=== PATIENT | male | born 1975 | race African-American/Black ===

== ENCOUNTER 2021-07-09 14:44 | Emergency (ER) | payer MEDICAID, SELFPAY ==
--- NOTE | ~2021-07-09 | CT_ITS ---
EXAMINATION: CT CERVICAL SPINE WITHOUT CONTRAST CLINICAL INFORMATION: Neck pain with right arm pain. COMPARISON: None TECHNIQUE: Contiguous axial CT images of the cervical spine were obtained without contrast. Sagittal and coronal reformats were provided and reviewed. This CT examination was performed using dose optimization techniques as appropriate, variously including the following: *Automated exposure control. *Adjustment of mA and/or kV according to patient size (this includes techniques or standardized protocols for targeted exams where dose is matched to indication/reason for exam; i.e. extremities or head). *Use of iterative reconstruction technique. DLP: 603 mGy-cm FINDINGS: Straightening of the normal cervical lordosis, which may be positional or related to muscle spasm. No acute fracture or subluxation. No loss of vertebral body or intervertebral disc height. No lytic or blastic osseous lesion. Anterior endplate osteophytes at C5-C6. Unremarkable facet joints. The visualized paraspinal soft tissues are unremarkable. Normal thyroid. The visualized lung apices are clear. No significant central canal or neural foraminal stenosis. CT/CT cervical spine wo con IMPRESSION: 1. Straightening of the normal cervical lordosis, which may be positional or related to muscular spasm. 2. Mild degenerative disc disease at C5-C6.
[2021-07-09 14:52] VITALS: BP 155/93; PULSE 108; RESP 18; TEMP 36.6; O2SAT 98; BMI 25.7
--- NOTE | 2021-07-09 16:31 | ED.NECK ---
HPI - Neck Pain/Injury General Chief Complaint: Neck Pain/Injury Stated Complaint: neck pain Time Seen by Provider: 07/09/21 16:04 Source: patient Mode of arrival: ambulatory Limitations: no limitations History of Present Illness HPI Narrative: Patient presents to the ED for neck pain and right arm numbness for two weeks. patient states neck pain on movement. patient denies any recent trauma to head/neck/right upper extremity. patient states pmh of severe arthrits/disc herniation of lower back and has had surgery and spinal steriod injection in the past. patient was informed he needs rods in his spine.. patient denies any headache, nausea, emesis, photophobia, fever, chills, or dizziness. patient denies any history of IV drug use, HIV, or hep C. MD complaint: neck pain Related Data Previous Rx's Medication Instructions Recorded cyclobenzaprine 10 mg tablet 10 mg PO TID PRN #21 tab 07/09/21 ketorolac 10 mg tablet 10 mg PO Q6H PRN 5 Days #20 tab 07/09/21 prednisone 20 mg tablet 60 mg PO DAILY 5 Days #15 tab 07/09/21 Allergies Allergy/AdvReac Type Severity Reaction Status Date / Time No Known Allergies Allergy Verified 07/09/21 16:18 Review of Systems Review of Systems: Yes all other systems are reviewed and are negative Constitutional: Constitutional: Reports as per HPI and Reports no additional constitutional complaints Eyes: Eyes: Reports as per HPI and Reports no additional eye complaints ENT: Reports system reviewed and no additional complaints, except as documented, Reports as per HPI and Reports neck pain Cardiovascular: Cardiovascular: Reports as per HPI and Reports no additional cardiovascular complaints Respiratory: Respiratory: Reports as per HPI and Reports no additional respiratory complaints Gastrointestinal: Gastrointestinal: Reports as per HPI and Reports no additional gastrointestinal complaints Musculoskeletal: Musculoskeletal: Reports no additional musculoskeletal complaints, Reports as per HPI and Reports neck pain Comments: Right upper extremity posiive for tingling. Neurologic: Reports system reviewed and no additional complaints, except as documented and Reports as per HPI Psychiatric: Psychiatric: Reports no additional psychiatric complaints and Reports as per HPI [facility] Past Medical History Medical History (Updated 07/09/21 @ 18:36 by ANA PAULA Angela) HTN (hypertension) Lumbar herniated disc Social History Social History Advance Directives: No Advance Directives Information Provided: Yes Physical Exam Vital Signs: Vital Signs: Last Vital Signs Temp 97.8 F 07/09/21 14:52 Pulse 108 H 07/09/21 14:52 Resp 18 07/09/21 14:52 BP 155/93 H 07/09/21 14:52 Pulse Ox 98 07/09/21 14:52 Body Mass Index 25.7 Const: General: cooperative, healthy appearing, comfortable, no acute distress, well developed, alert, awake and Physically active Orientation/consciousness: oriented to time and patient oriented x3 HENMT: Head: Yes normal to inspection, Yes No palpable skull fracture present, Yes normocephalic, Yes atraumatic, No abrasion, No Vo's sign, No contusion, No cranial bruits, No hematoma, No laceration, No occipital foramen tenderness, No palpable skull fracture, No raccoon eyes, No scalp lesion, No scalp tenderness, No Temporal artery tenderness present and No periorbital ecchymosis Eyes: Other: negative photophobia Neck: Neck: Yes normal visual inspection, Yes full ROM, Yes no lymphadenopathy, Yes no meningeal signs, Yes trachea midline, Yes supple, No anterior neck swelling and Yes tender (posterior tenderness and pain on range of motion) Chest: Chest palpation & inspection: normal inspection of the chest and normal palpation of entire chest wall Resp: Effort & Inspection: normal respiratory effort and able to speak in complete sentences Auscultation: clear to auscultation bilaterally Cardio: Jugular venous distension: no JVD Heart sounds: S1 normal heart sound present and S2 normal heart sound present GI: Inspection: Yes normal to inspection and No abdominal wall ecchymosis Palpation (GI): Soft to palpation, not firm, nontender, no guarding and not rigid : General: No CVA tenderness and Yes no CVA tenderness Back/Spine/Pelvis: Back: no CVA tenderness, No CVA tenderness and No back tenderness Skin: General skin exam: no rashes or lesions noted and elasticity normal Neuro: Other: Negative facial droop. NEgative pronator drift. negative for slurred speech. All extremities equal strenght and 5+ General: oriented to time, patient oriented x3, gait normal, no meningeal signs and CN's II-XI intact bilaterally Cranial nerves: Yes CN's II-XII intact bilaterally Extrem: Other: Right upper extremity: negative for any swelling, pitting edema, chest pain, tenderness, deformity, redness, coldness, weakness, or hotness. MOtor, neuro, and vascular exam is itnact. Left upper extremity normal and motor/neuro/vascular exam is intact. General: Yes normal to inspection and Yes full ROM Psych: Appearance: grossly normal, well kempt and not disheveled Course Course Course Narrative: patient sent for cervical spine CT. pain meds ordered Reevaluation(s) Reevaluation #1: CT scan shows arthritis at C5 and C6. CT scan negative for any fractures. Not suspecting any epidural abscess. Will discharge with pain medication, muscle relaxer, and steroids. Patient referred to follow-up with PCP. Time: 18:35 MDM - Neck Pain/Injury MDM Narrative Medical decision making narrative: Cervical radiculopathy Discharge Plan Discharge Clinical Impression: Cervical radiculopathy Patient Disposition: Home, Self-Care Instructions: Cervical Radiculopathy (ED) Additional Instructions: Return to ED immediately for fever, headache, chills, nausea, vomiting, photophobia, worsening neck pain, paralysis of upper extremities, coolness, swelling upper extremity, severe numbness, chest pain, shortness of breath, or any other concerning symptoms. Contact your PCP. You can also contact at [address] [place] [address],?[id number] ?[phone] Prescriptions: New ketorolac 10 mg tablet 10 mg PO Q6H PRN (Reason: pain) 5 Days Qty: 20 RF: 0 prednisone 20 mg tablet 60 mg PO DAILY 5 Days Qty: 15 RF: 0 cyclobenzaprine 10 mg tablet 10 mg PO TID PRN (Reason: muscle spasm) Qty: 21 RF: 0 Stand Alone Forms: Work/School Release Print Language: Kittitian
[2021-07-09] MEDS: predniSONE 20 MG TABLET 60 MG PO (16:38)
[2021-07-09] MEDS: Ketorolac Tromethamine 15 MG/ML VIAL 30 MG IM (16:38)
[2021-07-09] MEDS: Cyclobenzaprine HCl 10 MG TABLET PO (16:38)
== END 2021-07-09 19:04 | disposition home or self-care (01) ==
PROVIDERS: Emergency Provider Emergency Medicine
DX: M54.12 Radiculopathy, cervical region (principal); M54.2 Cervicalgia
CPT/HCPCS: 72125; 96372; 99284; J1885

== ENCOUNTER 2021-07-17 18:02 | Inpatient (IN) | payer OTHER, SELFPAY ==
[2021-07-17 18:12] VITALS: BP 162/110; PULSE 96
[2021-07-17 18:23] VITALS: BP 148/93; PULSE 87; RESP 18; TEMP 36.8; O2SAT 98
[2021-07-17 18:39] VITALS: BP 158/70; O2SAT 96; BMI 23.0
--- NOTE | 2021-07-17 18:51 | ECG_ITS ---
Test Reason : medical clear Blood Pressure : / mmHG Vent. Rate : 066 BPM Atrial Rate : 066 BPM P-R Int : 162 ms QRS Dur : 090 ms QT Int : 386 ms P-R-T Axes : 031 080 004 degrees QTc Int : 404 ms Normal sinus rhythm Normal ECG No previous ECGs available Referred By: Jenelle Leung Electronically Signed By:TISHA BROWN MD
--- NOTE | 2021-07-17 18:52 | ED.PSYCH ---
HPI - Psych General Chief Complaint: Psychiatric Symptoms Stated Complaint: si Time Seen by Provider: 07/17/21 18:35 Source: patient Mode of arrival: ambulatory Limitations: no limitations History of Present Illness HPI Narrative: 46-year-old male with a past medical history of hypertension and lumbar herniated this who recently moved from [place] here over the past year after he lost his mother from [facility] now residing with his aunt presenting to the ED with complaints of increased anxiety/depression with auditory hallucinations telling him to kill himself with SI attempt on Thursday when he took a handful of pills which included for muscle relaxants and 3 gabapentin and a few other pills that he cannot recall at this time. He reports that he just fell asleep shortly after that and was out for a few days but it did not kill him therefore he came here for further evaluation and treatment. He reports that he has significant life stressors which include the above. He denies any drugs or alcohol usage. He denies any other symptoms complaints or concerns. He denies any visual hallucinations or homicidal ideations. Denies ever being hospitalized in a psychiatric unit. Reports that he has never attempted an SI attempt in the past this would be the 1st time. Patient is inpatient Section 12 bed search she was seen by [facility] when he was outpatient. complaint: suicidal ideation, feels depressed and anxiety Onset (ago): day(s) Duration: constant History of same: Yes Relieving factors: none Exacerbating factors: other (Multiple factors see above) Context: significant life stressor (Recently lost his mother to [facility]) Associated psychiatric symptoms: depression, suicidal ideation and racing thoughts Associated symptoms: denies other symptoms Treatments prior to arrival: none If self harm: admits thoughts of self harm, has plan, has acted on plan and intentional overdose Details of plan: Took a handful of his prescribed home medications on Thursday Related Data Previous Rx's Medication Instructions Recorded cyclobenzaprine 10 mg tablet 10 mg PO TID PRN #21 tab 07/09/21 ketorolac 10 mg tablet 10 mg PO Q6H PRN 5 Days #20 tab 07/09/21 prednisone 20 mg tablet 60 mg PO DAILY 5 Days #15 tab 07/09/21 Allergies Allergy/AdvReac Type Severity Reaction Status Date / Time No Known Allergies Allergy Verified 07/09/21 16:18 Review of Systems Review of Systems: Constitutional : No Fever, No Chills ENT/Mouth : No Ear Pain, No Nasal Congestion, No sore throat Eyes: No Eye Pain, No Swelling, No Redness Cardiovascular : No Chest Pain, No SOB Respiratory : No Cough, No Sputum, No Dyspnea Gastrointestinal : No ingestions, No Nausea, No Vomiting, No Diarrhea, No Hematochezia, No Melena Genitourinary : No Dysuria, No Urinary Frequency, No Hematuria Musculoskeletal : No Myalgias Skin : No Skin Lesions, No rash Neuro : No Weakness, No Numbness, No Paresthesias, No Dizziness, No Headache Psych : + Anxiety, + Depression, + SI, + thoughts of self injury, No HI, No AVH, Heme/Lymph: No Lymphadenopathy Endocrine : No Polyuria, No Polydipsia Yes all other systems are reviewed and are negative [facility] Past Medical History Attestation statement: The following information was validated with the patient. Medical History HTN (hypertension) Lumbar herniated disc Social History Social History Advance Directives: No Advance Directives Information Provided: No Physical Exam Vital Signs: Vital Signs: Last Vital Signs Temp 98.3 F 07/17/21 18:23 Pulse 87 07/17/21 18:23 Resp 18 07/17/21 18:23 BP 158/70 H 07/17/21 18:39 Pulse Ox 96 07/17/21 18:39 Body Mass Index 23.0 vital signs have been reviewed as normal and appeared to be correct. Blood pressure hypertensive 148/93 Heart rate normal. Respiration rate normal. Temperature normal. Oxygen saturation normal. Appearance: Alert. Oriented X3. No acute distress. Head: Normal external exam. Normocephalic. Atraumatic. Eyes: PERRLA. EOMI. Conjunctiva and sclera normal. Eyelids normal. ENT: Pharynx normal. Uvula midline. Moist mucous membranes. Neck: Normal inspection. Neck supple. FROM. No adenopathy. Thyroid Normal. No meningeal signs. No neck mass noted. CVS: Normal heart rate and rhythm. Heart sound normal. No murmurs noted. Pulses normal throughout. Respiratory: No respiratory distress. Painless inspiration. Breath sounds normal. No wheezes/rales/rhonchi noted. Chest nontender. No accessory muscle usage noted or decreased air movement noted. Abdomen: Soft and nontender. Bowel sounds normal in all 4 quadrants. No distention noted. No organomegaly noted. No visible injury noted. Back: Full range of motion noted. Skin: Skin warm and dry. Normal skin color. Normal skin turgor. No rashes/lesions/lacerations noted. Extremities: Extremities exhibit normal range of motion. Extremities nontender. Neuro: Oriented X 3. No motor deficit. No sensory deficit. Reflexes normal. Psych: Appearance grossly normal, well-kept, mental status normal, speech and movement normal, speech clear, patient appears very sad and anxious along with depressed. Is cooperative. Normal thought process. Normal thought content. Normal good insight. Judgment good. Course Course Course Narrative: 18:50pm - 46-year-old male with a past medical history of hypertension and lumbar herniated this who recently moved from [place] here over the past year after he lost his mother from [facility] now residing with his aunt presenting to the ED with complaints of increased anxiety/depression with auditory hallucinations telling him to kill himself with SI attempt on Thursday when he took a handful of pills which included for muscle relaxants and 3 gabapentin and a few other pills that he cannot recall at this time. He reports that he just fell asleep shortly after that and was out for a few days but it did not kill him therefore he came here for further evaluation and treatment. He reports that he has significant life stressors which include the above. He denies any drugs or alcohol usage. He denies any visual hallucinations or homicidal ideations. Denies ever being hospitalized in a psychiatric unit. Reports that he has never attempted an SI attempt in the past this would be the 1st time. Plan: Labs, EKG, CXR, drugs of abuse screen and safety check order then re-evaluate. Patient is inpatient Section 12 bed search she was seen by [facility] when he was outpatient. Reevaluation(s) Reevaluation #1: - labs reviewed and ALT 43 otherwise all other labs are within normal limits. UA within normal limits no evidence of UTI. Patient positive for marijuana negative for all other drugs. Negative for EtOH. Negative for COVID. - therefore at this time patient is medically cleared and placed in Physician observation because the patient needs more time to find inpatient bed with [facility] due to he was a community outpatient bed search at this time patient remained stable within normal limits. Vital signs are stable within normal limits. No focal know that are noted. Lungs clear to auscultation. CV RRR. Abdomen is soft nontender. Will continue to monitor. Time: 20:20 [facility] - Psych Medical Records Attestation: I reviewed the patient's medical records. Lab Data Attestation: I reviewed the patient's lab results. Result diagrams: 07/17/21 21:49 07/17/21 21:49 Labs: Lab Results 07/17/21 07/17/21 07/17/21 Range/Units 19:55 20:31 20:31 WBC (4.8-10.8) X10*3/uL RBC (4.60-5.80) X10*6/uL Hgb (14.0-18.0) g/dl Hct (42.0-52.0) % MCV (80.0-98.0) fL MCH (27.0-33.0) pg MCHC (31.0-36.0) g/dl RDW (11.0-16.0) % Plt Count (160-400) X10*3/uL MPV (9.4-12.4) fL Immature Gran % (Auto) (0.0-0.4) % Neut % (Auto) (45-73) % Lymph % (Auto) (20-40) % [place] % (Auto) (2-11) % Eos % (Auto) (0-4) % Baso % (Auto) (0-2) % Lymph # (Auto) (1.2-4.9) X10*3/uL [place] # (Auto) (0.1-1.2) X10*3/uL Eos # (Auto) (0.0-0.4) X10*3/uL Baso # (Auto) (0.0-0.2) X10*3/uL Abs Immat Gran (auto) (0.00-0.03) X10*3/uL Absolute Neuts (auto) (2.0-8.3) x10*3/uL Absolute Nucleated RBC (0.0-0.012) X10*3/uL Nucleated RBC % (auto) (0.0-0.2) /100WBC Sodium (135-145) mmol/L Potassium (3.3-5.1) mmol/L Chloride (96-108) mmol/L Carbon Dioxide (22-29) mmol/L Anion Gap (12-20) BUN (9-16) mg/dL Creatinine (0.5-1.4) mg/dL Estim Creat Clear Calc Estimated GFR Random Glucose (60-115) mg/dL Calcium (8.4-10.2) mg/dL Magnesium (1.6-2.6) mg/dL Total Bilirubin (0.0-1.0) mg/dL AST (5-37) U/L ALT (0-40) U/L Alkaline Phosphatase (39-117) U/L Total Protein (6.5-8.0) g/dL Albumin (3.5-5.0) g/dL Lipase (8-78) U/L Urine Color YELLOW Urine Appearance CLEAR Urine pH 6.0 (5.0-8.0) Ur Specific [place] 1.025 (1.005-1.025) Urine Protein NEG (NEG-TRACE) MG/DL Urine Glucose (UA) NEG (NEG) MG/DL Urine Ketones 5 (NEG) MG/DL Urine Blood NEG (NEG) Urine Nitrite NEG (NEG) Ur Leukocyte Esterase NEG (NEG) Urine Opiates Screen Not Detected (Not Detect) Urine Fentanyl Screen Not Detected (Not Detect) Ur Barbiturates Screen Not Detected (Not Detect) Ur Phencyclidine Scrn Not Detected (Not Detect) Ur Amphetamines Screen Not Detected (Not Detect) U Benzodiazepines Scrn Not Detected (Not Detect) Urine Cocaine Screen Not Detected (Not Detect) U Marijuana (THC) Screen POSITIVE H (Not Detect) Ethyl Alcohol mg/dL COVID-19 ([facility]) Negative (Negative) COVID-19 Clin Com See Note 07/17/21 07/17/21 07/17/21 Range/Units 21:49 21:49 21:49 WBC 8.9 (4.8-10.8) X10*3/uL RBC 4.90 (4.60-5.80) X10*6/uL Hgb 15.0 (14.0-18.0) g/dl Hct 41.5 L (42.0-52.0) % MCV 84.7 (80.0-98.0) fL MCH 30.6 (27.0-33.0) pg MCHC 36.1 H (31.0-36.0) g/dl RDW 12.9 (11.0-16.0) % Plt Count 217 (160-400) X10*3/uL MPV 9.9 (9.4-12.4) fL Immature Gran % (Auto) 0.3 (0.0-0.4) % Neut % (Auto) 68.9 (45-73) % Lymph % (Auto) 22.1 (20-40) % [place] % (Auto) 5.9 (2-11) % Eos % (Auto) 2.3 (0-4) % Baso % (Auto) 0.5 (0-2) % Lymph # (Auto) 2.0 (1.2-4.9) X10*3/uL [place] # (Auto) 0.5 (0.1-1.2) X10*3/uL Eos # (Auto) 0.2 (0.0-0.4) X10*3/uL Baso # (Auto) 0.0 (0.0-0.2) X10*3/uL Abs Immat Gran (auto) 0.03 (0.00-0.03) X10*3/uL Absolute Neuts (auto) 6.1 (2.0-8.3) x10*3/uL Absolute Nucleated RBC 0.000 (0.0-0.012) X10*3/uL Nucleated RBC % (auto) 0.0 (0.0-0.2) /100WBC Sodium 140 (135-145) mmol/L Potassium 3.8 (3.3-5.1) mmol/L Chloride 106 (96-108) mmol/L Carbon Dioxide 25 (22-29) mmol/L Anion Gap 13 (12-20) BUN 10 (9-16) mg/dL Creatinine 1.03 (0.5-1.4) mg/dL Estim Creat Clear Calc 99.8 Estimated GFR > 60 Random Glucose 85 (60-115) mg/dL Calcium 9.2 (8.4-10.2) mg/dL Magnesium 1.9 (1.6-2.6) mg/dL Total Bilirubin 0.8 (0.0-1.0) mg/dL AST 37 (5-37) U/L ALT 43 H (0-40) U/L Alkaline Phosphatase 61 (39-117) U/L Total Protein 6.7 (6.5-8.0) g/dL Albumin 4.1 (3.5-5.0) g/dL Lipase 54 (8-78) U/L Urine Color Urine Appearance Urine pH (5.0-8.0) Ur Specific [place] (1.005-1.025) Urine Protein (NEG-TRACE) MG/DL Urine Glucose (UA) (NEG) MG/DL Urine Ketones (NEG) MG/DL Urine Blood (NEG) Urine Nitrite (NEG) Ur Leukocyte Esterase (NEG) Urine Opiates Screen (Not Detect) Urine Fentanyl Screen (Not Detect) Ur Barbiturates Screen (Not Detect) Ur Phencyclidine Scrn (Not Detect) Ur Amphetamines Screen (Not Detect) U Benzodiazepines Scrn (Not Detect) Urine Cocaine Screen (Not Detect) U Marijuana (THC) Screen (Not Detect) Ethyl Alcohol < 10 mg/dL COVID-19 ([facility]) (Negative) COVID-19 Clin Com Discharge Plan Discharge Clinical Impression: Acute anxiety, Depression, Suicide attempt Patient Disposition: Still a Patient Prescriptions: No Action ketorolac 10 mg tablet 10 mg PO Q6H PRN (Reason: pain) 5 Days Qty: 20 RF: 0 prednisone 20 mg tablet 60 mg PO DAILY 5 Days Qty: 15 RF: 0 cyclobenzaprine 10 mg tablet 10 mg PO TID PRN (Reason: muscle spasm) Qty: 21 RF: 0
--- NOTE | 2021-07-17 19:05 | PHA.MEDREC ---
Pharmacy Consult ? Medication Reconciliation Pharmacy has completed the medication reconciliation.Pt says he takes gabapentin, called his pharmacy ([facility]), and they did not have any recent fill history
--- NOTE | 2021-07-17 19:42 | PC.NURSE ---
Patient just got transferred from main ED in wheelchair, per report patient had unsteady gait, N called/spoke with [facility] who confirmed that the patient is on section 12 inpatient bed search, will continue to monitor.
[2021-07-17 20:33] LABS: IDNOW Serial# 08D9AD1C
[2021-07-17 20:34] LABS: COVID-19 Test Negative (Negative)
[2021-07-17 20:44] LABS: Appearance Urine CLEAR; Color Urine YELLOW; Glucose Urine UA NEG (NEG); Leukocyte Esterase Urine NEG (NEG); Nitrite Urine NEG (NEG); Specific Gravity - Urine 1.025 (1.005-1.025); Urine Blood NEG (NEG); Urine Ketones 5 MG/DL (NEG); Urine Protein NEG (NEG-TRACE)
[2021-07-17 20:59] LABS: Amphetamine Screen Urine Not Detected (Not Detect); Barbiturates, Urine Not Detected (Not Detect); Benzodiazepines Screen Urine Not Detected (Not Detect); Cannabinoid Screen Urine POSITIVE (Not Detect); Cocaine Screen Urine Not Detected (Not Detect); Fentanyl, urine Not Detected (Not Detect); Opiate Screen Urine Not Detected (Not Detect); Phencyclidine Screen Urine Not Detected (Not Detect)
[2021-07-17] MEDS: Gabapentin 300 MG CAPSULE PO (21:25)
[2021-07-17] MEDS: predniSONE 20 MG TABLET 60 MG PO (21:25)
[2021-07-17] MEDS: Cyclobenzaprine HCl 10 MG TABLET PO (21:25)
[2021-07-17 21:55] LABS: MANUAL DIFF FLAG NO
[2021-07-17 21:56] LABS: Basophils Percent Auto 0.5 % (0-2); Eosinophils Absolute Auto 0.2 X10*3/uL (0.0-0.4); Eosinophils Percent Auto 2.3 % (0-4); Hematocrit 41.5 % (42.0-52.0); Imm Gran Abs Auto 0.03 X10*3/uL (0.00-0.03); Imm Gran Pct Auto 0.3 % (0.0-0.4); Lymphocytes Percent Auto 22.1 % (20-40); Mean Corpuscular HGB Conc 36.1 g/dl (31.0-36.0); Mean Corpuscular Hemoglobin 30.6 pg (27.0-33.0); Mean Corpuscular Volume 84.7 fL (80.0-98.0); Mean Platelet Volume 9.9 fL (9.4-12.4); Monocytes Absolute Auto 0.5 X10*3/uL (0.1-1.2); Monocytes Percent Auto 5.9 % (2-11); Neutrophils Absolute Auto 6.1 x10*3/uL (2.0-8.3); Neutrophils Percent Auto 68.9 % (45-73); Platelet Count 217 X10*3/uL (160-400); Red Cell Distribution Width 12.9 % (11.0-16.0); White Blood Count 8.9 X10*3/uL (4.8-10.8)
[2021-07-17 22:10] LABS: Ethanol < 10 mg/dL
[2021-07-17 22:14] LABS: Alanine Aminotransferase 43 U/L (0-40); Albumin Level 4.1 g/dL (3.5-5.0); Alkaline Phosphatase 61 U/L (39-117); Anion Gap 13 (12-20); Aspartate Amino Transferase 37 U/L (5-37); Bilirubin Total 0.8 mg/dL (0.0-1.0); Blood Urea Nitrogen 10 mg/dL (9-16); Calcium 9.2 mg/dL (8.4-10.2); Carbon Dioxide 25 mmol/L (22-29); Chloride 106 mmol/L (96-108); Creatinine Clr Calc Pharmacy 99.8; Estimated Glomerular Filt Rate > 60; Glucose Random 85 mg/dL (60-115); Lipase 54 U/L (8-78); Magnesium 1.9 mg/dL (1.6-2.6); Potassium 3.8 mmol/L (3.3-5.1); Sodium 140 mmol/L (135-145); Total Protein 6.7 g/dL (6.5-8.0)
--- NOTE | 2021-07-18 06:12 | PC.NURSE ---
Patient slept through the night, no distress observed/reported, medication compliant, behavior appropriate, gait is unsteady due herniated disc, patient is on section 12 inpatient bed search, [facility] in [place] is considering for admission per N, will continue to monitor.
[2021-07-18 06:50] VITALS: BP 111/65; PULSE 66; RESP 18; TEMP 36.8; O2SAT 97
--- NOTE | 2021-07-18 07:08 | PC.NURSE ---
patient appears to remain at rest at present respirations are even and unlabored, patient appears in no distress
[2021-07-18] MEDS: predniSONE 20 MG TABLET 60 MG PO (08:24)
[2021-07-18] MEDS: Cyclobenzaprine HCl 10 MG TABLET PO ×2 (12:21→18:13)
[2021-07-18] MEDS: NaPROXEN 500 MG TABLET PO (12:22)
[2021-07-18 18:00] VITALS: BP 133/82; PULSE 95; RESP 16; TEMP 36.2; O2SAT 97
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
[2021-07-18 21:23] VITALS: BP 133/82; PULSE 95
[2021-07-18] MEDS: Gabapentin 600 MG TABLET PO (21:23)
[2021-07-18] MEDS: cloNIDine HCL 0.1 MG TABLET PO (21:23)
[2021-07-18] MEDS: traZODone HCL 50 MG TABLET PO (21:32)
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
[2021-07-19] MEDS: Gabapentin 600 MG TABLET PO ×3 (09:10→22:06)
[2021-07-19] MEDS: predniSONE 20 MG TABLET 60 MG PO (09:10)
[2021-07-19 09:28] LABS: Estimated Average Glucose 103 mg/dL; Hemoglobin A1c % 5.2 %
[2021-07-19 09:45] LABS: Cholesterol 226 mg/dL; HDL Cholesterol 62 mg/dL; LDL Cholesterol Calculated 149 mg/dl; Triglycerides 78 mg/dL
--- NOTE | 2021-07-19 09:59 | MHC.CLN ---
NUTRITION CONSULT NUTRITION CONSULT FOR WEIGHT LOSS OF 10 OR MORE POUNDS. RECENT WEIGHT HISTORY REVIEWED AND LIKELY INCORRECT, SHOWING -10% WEIGHT LOSS X 1 WEEK. VISITED WITH PATIENT. STATED WEIGHT LOSS DUE TO SMOKING, MOOD, AND NOT EATING WELL. WOULD LIKE CHOCOLATE ENSURE, TWICE A DAY. WILL PROVIDE 700 KCAL, 32 G PROTEIN. BMI=23, NORMAL LIMIT.
[2021-07-19 10:07] LABS: Free T4 (Free Thyroxine) 1.02 ng/dL (0.71-1.85); Thyroid Stimulating Hormone 0.79 uIU/mL (0.32-4.0)
[2021-07-19 10:12] VITALS: BP 121/80; PULSE 73; RESP 18; TEMP 36.9; O2SAT 96
[2021-07-19 10:20] LABS: Folate 3.5 ng/mL (> or = 4.0); Vitamin B12 537 pg/mL (200-900)
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
[2021-07-19] MEDS: Cyclobenzaprine HCl 10 MG TABLET PO ×2 (13:29→21:47)
[2021-07-19] MEDS: OLANZapine 5 MG TABLET PO (13:29)
[2021-07-19] MEDS: Milk of Magnesia 30 ML ORAL.SUSP PO (14:02)
[2021-07-19 17:30] VITALS: BP 120/56; PULSE 81; TEMP 36.5
--- NOTE | 2021-07-19 18:10 | HO.PSYCHPN ---
Subjective Subjective Date of Service: 07/19/21 Reason For Visit: Major depression with SI Subjective Notes: [place] Warning and Conditional Voluntary Healthcare Proxy: No Guardianship: No Medical Problems Affecting Mental Status: No Interim History: Met with pt and Tejas LLOYD. Pt provided history of current symptoms including pain, nightmares, insomnia and feeling like a walking time bomb . States meeting with his father he believes precipitated most of this and fathers response with arrogance and entitlement. He believes his response to his father is contained in his neck pain. Describes mood lability, intrusive PTSD sx with feeling at times his mind is divided by trauma, anger and wanting to be on the correct path. He is aware that since the majority of his time was spent incarcerated he has a different view of the world and believes this has not served him well. Discussed mood stabilization, nightmare mgt and prn mgt of intrusive PTSD sx. Discussed and reviewed low dose Depakote, Prazosin, and prn Olanzapine. Pt would like to have relief without being overmedicated. Medication Compliance: Yes Side effects from medications: Yes (s/p OD) Attending Groups: No Review of Systems Acute medical concerns: Yes Required neurosurgical follow up. Medical Review of Systems: unchanged Review of Systems Constitutional: Reports difficulty sleeping and Reports weakness Eyes: Reports no additional eye complaints Reports system reviewed and no additional complaints, except as documented Cardiovascular: Reports no additional cardiovascular complaints Respiratory: Reports no additional respiratory complaints Gastrointestinal: Reports no additional gastrointestinal complaints Genitourinary: Reports no additional male genitourinary complaints Musculoskeletal: Reports no additional musculoskeletal complaints, Reports numbness and Reports tingling Skin/Breast: Reports system reviewed and no additional complaints, except as docu Reports behavioral changes, Reports numbness, Reports radicular pain, Reports restless legs, Reports Sensory deficit (Neuro), Reports tingling, Reports paresthesias and Reports weakness Psychiatric: Reports abnormal sleep pattern, Reports anxiety, Reports behavioral changes, Reports change in appetite, Reports depression, Reports difficulty concentrating, Reports hopelessness, Reports irritability, Reports anhedonia, Reports mood swings, Reports paranoia, Reports homicidal ideation and Reports suicidal ideation Endocrine: Reports no additional endocrine complaints Hematologic/Lymphatic: Reports no additional hematologic/lymphatic complaints Allergic/Immunologic: Reports no additional allergic/immunologic complaints Mental Status Exam Mental Status Exam Patient Appearance: Appropriate Patient Orientation: Person, Place, Time and Situation Level of Consciousness: Awake, Appropriate and Alert Patient Behavior: Appropriate, Talkative, Cooperative, Anxious, Fearful, Fatigued, Distractible and Good Eye Contact Mood Description: Depressed and Anxious Affect Description: Anxious and Blunted Patient Cognition Impaired: No Ability to Follow Directions: Good Speech Pattern: Spontaneous Speech Memory Description: Intact and Casting Tester Impaired (states he was told of his childhood trauma by a former therapist.) Hallucinations: None Delusions: Not Present Perceptual Disturbances: Depersonalization and Derealization Thought Process: Distracted, Rumination and Goal Oriented Thought Content: positive for Circumstantial, positive for Perseveration, positive for Suicidal Ideation and positive for Homicidal Ideation Depressive Symptoms: Increased Anxiety, Insomnia, Increased Irritability, Loss of Int. in Activity, Feelings of Worthlessness, Hopelessness, Increased Fatigue, Thoughts of /Suicide, Low Self Esteem, Loss of Energy and Difficulty Concentrating Abnormal Motor Activity Signs and Symptoms: Restlessness Judgement: Fair Diagnostics Vital Signs (24Hr): Vital Signs - 24 hr 07/18/21 21:23 07/19/21 10:12 Temperature 98.5 F Pulse Rate 95 73 Respiratory Rate 18 Blood Pressure 133/82 121/80 Pulse Oximetry 96 Body Mass Index 23.0 Labs Results: 07/17/21 21:49 07/17/21 21:49 Labs: Laboratory Results - last 48 hr 07/17/21 07/17/21 07/17/21 19:55 20:31 20:31 WBC RBC Hgb Hct MCV MCH MCHC RDW Plt Count MPV Immature Gran % (Auto) Neut % (Auto) Lymph % (Auto) [place] % (Auto) Eos % (Auto) Baso % (Auto) Lymph # (Auto) [place] # (Auto) Eos # (Auto) Baso # (Auto) Abs Immat Gran (auto) Absolute Neuts (auto) Absolute Nucleated RBC Nucleated RBC % (auto) Sodium Potassium Chloride Carbon Dioxide Anion Gap BUN Creatinine Estim Creat Clear Calc Estimated GFR Random Glucose Estimat Average Glucose Hemoglobin A1c % Calcium Magnesium Total Bilirubin AST ALT Alkaline Phosphatase Total Protein Albumin Triglycerides Cholesterol LDL Cholesterol, Calc HDL Cholesterol Lipase Vitamin B12 Folate TSH Free T4 Urine Color YELLOW Urine Appearance CLEAR Urine pH 6.0 Ur Specific [place] 1.025 Urine Protein NEG Urine Glucose (UA) NEG Urine Ketones 5 Urine Blood NEG Urine Nitrite NEG Ur Leukocyte Esterase NEG Urine Opiates Screen Not Detected Urine Fentanyl Screen Not Detected Ur Barbiturates Screen Not Detected Ur Phencyclidine Scrn Not Detected Ur Amphetamines Screen Not Detected U Benzodiazepines Scrn Not Detected Urine Cocaine Screen Not Detected U Marijuana (THC) Screen POSITIVE H Ethyl Alcohol COVID-19 ([facility]) Negative COVID-19 Clin Com See Note 07/17/21 07/17/21 07/17/21 21:49 21:49 21:49 WBC 8.9 RBC 4.90 Hgb 15.0 Hct 41.5 L MCV 84.7 MCH 30.6 MCHC 36.1 H RDW 12.9 Plt Count 217 MPV 9.9 Immature Gran % (Auto) 0.3 Neut % (Auto) 68.9 Lymph % (Auto) 22.1 [place] % (Auto) 5.9 Eos % (Auto) 2.3 Baso % (Auto) 0.5 Lymph # (Auto) 2.0 [place] # (Auto) 0.5 Eos # (Auto) 0.2 Baso # (Auto) 0.0 Abs Immat Gran (auto) 0.03 Absolute Neuts (auto) 6.1 Absolute Nucleated RBC 0.000 Nucleated RBC % (auto) 0.0 Sodium 140 Potassium 3.8 Chloride 106 Carbon Dioxide 25 Anion Gap 13 BUN 10 Creatinine 1.03 Estim Creat Clear Calc 99.8 Estimated GFR > 60 Random Glucose 85 Estimat Average Glucose Hemoglobin A1c % Calcium 9.2 Magnesium 1.9 Total Bilirubin 0.8 AST 37 ALT 43 H Alkaline Phosphatase 61 Total Protein 6.7 Albumin 4.1 Triglycerides Cholesterol LDL Cholesterol, Calc HDL Cholesterol Lipase 54 Vitamin B12 Folate TSH Free T4 Urine Color Urine Appearance Urine pH Ur Specific [place] Urine Protein Urine Glucose (UA) Urine Ketones Urine Blood Urine Nitrite Ur Leukocyte Esterase Urine Opiates Screen Urine Fentanyl Screen Ur Barbiturates Screen Ur Phencyclidine Scrn Ur Amphetamines Screen U Benzodiazepines Scrn Urine Cocaine Screen U Marijuana (THC) Screen Ethyl Alcohol < 10 COVID-19 ([facility]) COVID-19 [facility] Com 07/19/21 07/19/21 07/19/21 08:31 08:31 08:31 WBC RBC Hgb Hct MCV MCH MCHC RDW Plt Count MPV Immature Gran % (Auto) Neut % (Auto) Lymph % (Auto) [place] % (Auto) Eos % (Auto) Baso % (Auto) Lymph # (Auto) [place] # (Auto) Eos # (Auto) Baso # (Auto) Abs Immat Gran (auto) Absolute Neuts (auto) Absolute Nucleated RBC Nucleated RBC % (auto) Sodium Potassium Chloride Carbon Dioxide Anion Gap BUN Creatinine Estim Creat Clear Calc Estimated GFR Random Glucose Estimat Average Glucose 103 Hemoglobin A1c % 5.2 Calcium Magnesium Total Bilirubin AST ALT Alkaline Phosphatase Total Protein Albumin Triglycerides 78 Cholesterol 226 LDL Cholesterol, Calc 149 HDL Cholesterol 62 Lipase Vitamin B12 537 Folate 3.5 L TSH 0.79 Free T4 1.02 Urine Color Urine Appearance Urine pH Ur Specific [place] Urine Protein Urine Glucose (UA) Urine Ketones Urine Blood Urine Nitrite Ur Leukocyte Esterase Urine Opiates Screen Urine Fentanyl Screen Ur Barbiturates Screen Ur Phencyclidine Scrn Ur Amphetamines Screen U Benzodiazepines Scrn Urine Cocaine Screen U Marijuana (THC) Screen Ethyl Alcohol COVID-19 ([facility]) COVID-19 Clin Com Medications Medications Current Medications Acetaminophen (Acetaminophen 325 Mg Tablet) 650 mg PO Q6H PRN PRN Reason: Headache/Pain Mild Scale (1-3) Al Hydroxide/Mg Hydroxide (Magnesium Hydrox/Alum Hydrox 30 Ml Oral.Susp) 30 ml PO Q6H PRN PRN Reason: Heartburn/Nausea Clonidine HCl (Clonidine Hcl 0.1 Mg Tablet) 0.1 mg PO BEDTIME [facility]; Protocol Last Admin: 07/18/21 21:23 Dose: 0.1 mg Documented by: Cyclobenzaprine HCl (Cyclobenzaprine Hcl 10 Mg Tablet) 10 mg PO TID PRN PRN Reason: muscle spasm Last Admin: 07/19/21 13:29 Dose: 10 mg Documented by: Divalproex Sodium (Divalproex Sodium 250 Mg Tablet.) 250 mg PO BID [facility] Gabapentin (Gabapentin 600 Mg Tablet) 600 mg PO TID [facility] Last Admin: 07/19/21 14:23 Dose: 600 mg Documented by: Hydroxyzine HCl (Hydroxyzine Hcl 25 Mg Tablet) 25 mg PO BEDTIME PRN PRN Reason: Anxiety Magnesium Hydroxide (Milk Of Magnesia 30 Ml Oral.Susp) 30 ml PO DAILY PRN PRN Reason: Constipation Last Admin: 07/19/21 14:02 Dose: 30 ml Documented by: Naproxen (Naproxen 500 Mg Tablet) 500 mg PO Q12H PRN PRN Reason: Pain, Mild (Pain Scale 1-3) Last Admin: 07/18/21 12:22 Dose: 500 mg Documented by: Olanzapine (Olanzapine 5 Mg Tablet) 5 mg PO BID PRN PRN Reason: racing thoughts Last Admin: 07/19/21 13:29 Dose: 5 mg Documented by: Pharmacy Consult (Consult Rx Perform Med Rec) 1 each MISCELLANE ONCE PRN PRN Reason: Consult order Prazosin HCl (Prazosin Hcl 1 Mg Capsule) 1 mg PO BEDTIME [facility]; Protocol Prednisone (Prednisone 20 Mg Tablet) 60 mg PO DAILY [facility] Last Admin: 07/19/21 09:10 Dose: 60 mg Documented by: Trazodone HCl (Trazodone Hcl 50 Mg Tablet) 50 mg PO BEDTIME PRN PRN Reason: Insomnia Last Admin: 07/18/21 21:32 Dose: 50 mg Documented by: Allergies Allergies Allergy/AdvReac Type Severity Reaction Status Date / Time No Known Allergies Allergy Verified 07/09/21 16:18 Assessment & Plan Assessment & Plan (1) MDD (major depressive disorder), recurrent severe, without psychosis: Status: Acute Code(s): F33.2 - Major depressive disorder, recurrent severe without psychotic features (2) Post traumatic stress disorder (PTSD): Status: Acute Code(s): F43.10 - Post-traumatic stress disorder, unspecified Assessment and Plan: Pt is a 46 y.o. male who carries a dx of MDD, recurrent and PTSD. He has limited hx of psych services, no hx of IPLOC. He reports SI is new for him but he has been struggling with sx of depression and PTSD for years and these sx have been impacting his relationships and functioning. Pt has limited social supports and coping skills. 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 No substance abuse or ETOH abuse reported. Has co-morbid chronic pain issues and is wincing during interview. Says he is interested in med management, ?I think i need something for anxiety and when my brain starts to think of these bad episodes.? He reports he is supposed to be on gabapentin but has been unable to fill script due to recently relocating to [place], has been taking 500 mg TID. Discussed trial of clonidine 0.1 mg QHS to target sx of hyperarousal, anxiety, and poor sleep. Pt may benefit from SSRI to target sx of PTSD, depression, will defer to primary psych team for further management.? Pt is CV, Q15 min checks Monitor response to medications. Monitor for safety in the milieu. Discharge on stabilization. Patient seen. Chart reviewed. Discussed with team. Obtain collateral contact info?as needed 07/19/21: 1. Depakote 250 mg bid 2. Olanzapine 5 mg bid prn sx of racing thoughts-intrusive PTSD sx 3. Prazosin 1 mg HS to address nightmares 4. Hold Clonidine-we will need to eval which one helps pt the most 5. Eval for antidepressant rx when reported sx are improved 6. Refer to neurosurgery for cervical radiculopathy, lumbar disc herniation. 7. Folic Acid 1 mg daily I spent 60 minutes with the patient and/or on the patient floor today, greater than?50% of which was spent counseling/coordinating care. Patient educated on: medication risk/benefits and therapeutic strategies Informed Consent: understands and further education needed Reason for contiued inpatient stay Substantial Risk for: harm to self, harm to others and inability to function
[2021-07-19 21:46] VITALS: BP 120/56; PULSE 81
[2021-07-19] MEDS: Divalproex Sodium 250 MG TABLET.DR PO (21:46)
[2021-07-19] MEDS: Prazosin HCL 1 MG CAPSULE PO (21:46)
[2021-07-19] MEDS: Acetaminophen 325 MG TABLET 650 MG PO (21:46)
[2021-07-19] MEDS: traZODone HCL 50 MG TABLET PO (21:46)
[2021-07-20] MEDS: predniSONE 20 MG TABLET 60 MG PO (08:30)
[2021-07-20] MEDS: Folic Acid 1 MG TABLET PO (08:30)
[2021-07-20] MEDS: Gabapentin 600 MG TABLET PO ×3 (08:30→19:26)
[2021-07-20] MEDS: Divalproex Sodium 250 MG TABLET.DR PO ×2 (08:30→19:26)
--- NOTE | 2021-07-20 10:43 | HO.PSYCHPN ---
Subjective Subjective Date of Service: 07/20/21 Reason For Visit: Major depression with SI Subjective Notes: Conditional Voluntary Interim History: Patient was seen and discussed on rounds today. The records, treatment plan and labs were reviewed. He continues to complain of nightmares that are disturbing to him and has been started on prazosin 1 mg. Given his height and weight I will increase that to 2 mg and re-evaluate tomorrow. No reports of hallucinations. No SI. Mostly isolative. No other changes were made today Review of Systems Review of Systems Review of systems is negative by system except for nightmares Yes all other systems are reviewed and are negative Mental Status Exam Mental Status Exam Patient Appearance: Appropriate Patient Orientation: Person, Place, Time and Situation Level of Consciousness: Awake, Appropriate and Alert Patient Behavior: Appropriate, Talkative, Cooperative, Anxious, Fearful, Fatigued, Distractible and Good Eye Contact Mood Description: Depressed and Anxious Affect Description: Anxious and Blunted Patient Cognition Impaired: No Ability to Follow Directions: Good Speech Pattern: Spontaneous Speech Memory Description: Intact and Slag Expander Impaired (states he was told of his childhood trauma by a former therapist.) Hallucinations: None Delusions: Not Present Perceptual Disturbances: Depersonalization and Derealization Thought Process: Distracted, Rumination and Goal Oriented Thought Content: positive for Circumstantial, positive for Perseveration, positive for Suicidal Ideation and positive for Homicidal Ideation Depressive Symptoms: Increased Anxiety, Insomnia, Increased Irritability, Loss of Int. in Activity, Feelings of Worthlessness, Hopelessness, Increased Fatigue, Thoughts of /Suicide, Low Self Esteem, Loss of Energy and Difficulty Concentrating Abnormal Motor Activity Signs and Symptoms: Restlessness Judgement: Fair Diagnostics Vital Signs (24Hr): Vital Signs - 24 hr 07/19/21 17:30 07/19/21 21:46 Temperature 97.7 F Pulse Rate 81 81 Blood Pressure 120/56 L 120/56 L Body Mass Index 23.0 Labs Results: 07/17/21 21:49 07/17/21 21:49 Labs: Laboratory Results - last 48 hr 07/19/21 07/19/21 07/19/21 08:31 08:31 08:31 Estimat Average Glucose 103 Hemoglobin A1c % 5.2 Triglycerides 78 Cholesterol 226 LDL Cholesterol, Calc 149 HDL Cholesterol 62 Vitamin B12 537 Folate 3.5 L TSH 0.79 Free T4 1.02 Medications Medications Current Medications Acetaminophen (Acetaminophen 325 Mg Tablet) 650 mg PO Q6H PRN PRN Reason: Headache/Pain Mild Scale (1-3) Last Admin: 07/19/21 21:46 Dose: 650 mg Documented by: Al Hydroxide/Mg Hydroxide (Magnesium Hydrox/Alum Hydrox 30 Ml Oral.Susp) 30 ml PO Q6H PRN PRN Reason: Heartburn/Nausea Cyclobenzaprine HCl (Cyclobenzaprine Hcl 10 Mg Tablet) 10 mg PO TID PRN PRN Reason: muscle spasm Last Admin: 07/19/21 21:47 Dose: 10 mg Documented by: Divalproex Sodium (Divalproex Sodium 250 Mg Tablet.) 250 mg PO BID [facility] Last Admin: 07/20/21 08:30 Dose: 250 mg Documented by: Folic Acid (Folic Acid 1 Mg Tablet) 1 mg PO DAILY [facility] Last Admin: 07/20/21 08:30 Dose: 1 mg Documented by: Gabapentin (Gabapentin 600 Mg Tablet) 600 mg PO TID [facility] Last Admin: 07/20/21 08:30 Dose: 600 mg Documented by: Hydroxyzine HCl (Hydroxyzine Hcl 25 Mg Tablet) 25 mg PO BEDTIME PRN PRN Reason: Anxiety Magnesium Hydroxide (Milk Of Magnesia 30 Ml Oral.Susp) 30 ml PO DAILY PRN PRN Reason: Constipation Last Admin: 07/19/21 14:02 Dose: 30 ml Documented by: Naproxen (Naproxen 500 Mg Tablet) 500 mg PO Q12H PRN PRN Reason: Pain, Mild (Pain Scale 1-3) Last Admin: 07/18/21 12:22 Dose: 500 mg Documented by: Olanzapine (Olanzapine 5 Mg Tablet) 5 mg PO BID PRN PRN Reason: racing thoughts Last Admin: 07/19/21 13:29 Dose: 5 mg Documented by: Pharmacy Consult (Consult Rx Perform Med Rec) 1 each MISCELLANE ONCE PRN PRN Reason: Consult order Prazosin HCl (Prazosin Hcl 1 Mg Capsule) 1 mg PO BEDTIME [facility]; Protocol Last Admin: 07/19/21 21:46 Dose: 1 mg Documented by: Prednisone (Prednisone 20 Mg Tablet) 60 mg PO DAILY [facility] Last Admin: 07/20/21 08:30 Dose: 60 mg Documented by: Trazodone HCl (Trazodone Hcl 50 Mg Tablet) 50 mg PO BEDTIME PRN PRN Reason: Insomnia Last Admin: 07/19/21 21:46 Dose: 50 mg Documented by: Allergies Allergies Allergy/AdvReac Type Severity Reaction Status Date / Time No Known Allergies Allergy Verified 07/09/21 16:18 Assessment & Plan Assessment & Plan (1) MDD (major depressive disorder), recurrent severe, without psychosis: Status: Acute Code(s): F33.2 - Major depressive disorder, recurrent severe without psychotic features (2) Post traumatic stress disorder (PTSD): Status: Acute Code(s): F43.10 - Post-traumatic stress disorder, unspecified Assessment and Plan: Pt is a 46 y.o. male who carries a dx of MDD, recurrent and PTSD. He has limited hx of psych services, no hx of IPLOC. He reports SI is new for him but he has been struggling with sx of depression and PTSD for years and these sx have been impacting his relationships and functioning. Pt has limited social supports and coping skills. 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 No substance abuse or ETOH abuse reported. Has co-morbid chronic pain issues and is wincing during interview. Says he is interested in med management, ?I think i need something for anxiety and when my brain starts to think of these bad episodes.? He reports he is supposed to be on gabapentin but has been unable to fill script due to recently relocating to [place], has been taking 500 mg TID. Discussed trial of clonidine 0.1 mg QHS to target sx of hyperarousal, anxiety, and poor sleep. Pt may benefit from SSRI to target sx of PTSD, depression, will defer to primary psych team for further management.? Pt is CV, Q15 min checks Monitor response to medications. Monitor for safety in the milieu. Discharge on stabilization. Patient seen. Chart reviewed. Discussed with team. Obtain collateral contact info?as needed 07/19/21: 1. Depakote 250 mg bid 2. Olanzapine 5 mg bid prn sx of racing thoughts-intrusive PTSD sx 3. Prazosin 1 mg HS to address nightmares 4. Hold Clonidine-we will need to eval which one helps pt the most 5. Eval for antidepressant rx when reported sx are improved 6. Refer to neurosurgery for cervical radiculopathy, lumbar disc herniation. 7. Folic Acid 1 mg daily Continue current regimen and plans with increase of prazosin to 2 mg q.h.s. I spent minutes with the patient and/or on the patient floor today, greater than?50% of which was spent counseling/coordinating care. Reason for contiued inpatient stay Substantial Risk for: other
[2021-07-20 11:09] VITALS: BP 111/66; PULSE 79; RESP 18; TEMP 36.7; O2SAT 97
[2021-07-20 17:10] VITALS: BP 141/90; PULSE 70; TEMP 37.1
[2021-07-20 19:00] VITALS: BP 138/79; PULSE 81; TEMP 37.1
[2021-07-20 19:26] VITALS: BP 138/79; PULSE 81
[2021-07-20] MEDS: Prazosin HCL 1 MG CAPSULE 2 MG PO (19:26)
[2021-07-20] MEDS: Cyclobenzaprine HCl 10 MG TABLET PO (19:27)
[2021-07-21 06:00] VITALS: BP 121/61; PULSE 73; TEMP 36.9; O2SAT 97
[2021-07-21] MEDS: predniSONE 20 MG TABLET 60 MG PO (08:06)
[2021-07-21] MEDS: Folic Acid 1 MG TABLET PO (08:06)
[2021-07-21] MEDS: Gabapentin 600 MG TABLET PO ×3 (08:06→20:16)
[2021-07-21] MEDS: Divalproex Sodium 250 MG TABLET.DR PO ×2 (08:06→20:16)
--- NOTE | 2021-07-21 10:06 | HO.PSYCHPN ---
Subjective Subjective Date of Service: 07/21/21 Reason For Visit: Major depression with SI Subjective Notes: Conditional Voluntary Interim History: Patient was seen and discussed in rounds today. He continues to have a lot of problems with nightmares at night with frequent sleep interruptions. The increase of prazosin to 2 mg did not help and I will increase it to 5 mg. He denies any side effects. He has been social. Spending time with others. Eating adequately and sleeping is disturbed and discussed. No other changes were made today Review of Systems Review of Systems Problems with sleep interruptions Yes all other systems are reviewed and are negative Mental Status Exam Mental Status Exam Patient Appearance: Appropriate Patient Orientation: Person, Place, Time and Situation Level of Consciousness: Awake, Appropriate and Alert Patient Behavior: Appropriate, Talkative, Cooperative, Anxious, Fearful, Fatigued, Distractible and Good Eye Contact Mood Description: Depressed and Anxious Affect Description: Anxious and Blunted Patient Cognition Impaired: No Ability to Follow Directions: Good Speech Pattern: Spontaneous Speech Memory Description: Intact and Alf Impaired (states he was told of his childhood trauma by a former therapist.) Hallucinations: None Delusions: Not Present Perceptual Disturbances: Depersonalization and Derealization Thought Process: Distracted, Rumination and Goal Oriented Thought Content: positive for Circumstantial, positive for Perseveration, positive for Suicidal Ideation and positive for Homicidal Ideation Depressive Symptoms: Increased Anxiety, Insomnia, Increased Irritability, Loss of Int. in Activity, Feelings of Worthlessness, Hopelessness, Increased Fatigue, Thoughts of /Suicide, Low Self Esteem, Loss of Energy and Difficulty Concentrating Abnormal Motor Activity Signs and Symptoms: Restlessness Judgement: Fair Diagnostics Vital Signs (24Hr): Vital Signs - 24 hr 07/20/21 11:09 07/20/21 17:10 07/20/21 19:00 Temperature 98.1 F 98.7 F 98.7 F Pulse Rate 79 70 81 Respiratory Rate 18 Blood Pressure 111/66 141/90 H 138/79 Pulse Oximetry 97 07/20/21 19:26 07/21/21 06:00 Temperature 98.5 F Pulse Rate 81 73 Respiratory Rate Blood Pressure 138/79 121/61 Pulse Oximetry 97 Body Mass Index 23.0 Labs Results: 07/17/21 21:49 07/17/21 21:49 Labs: Laboratory Results - last 48 hr 11/12/21 11/12/21 08:31 08:31 Vitamin B12 537 Folate 3.5 L TSH 0.79 Free T4 1.02 Medications Medications Current Medications Acetaminophen (Acetaminophen 325 Mg Tablet) 650 mg PO Q6H PRN PRN Reason: Headache/Pain Mild Scale (1-3) Last Admin: 07/19/21 21:46 Dose: 650 mg Documented by: Al Hydroxide/Mg Hydroxide (Magnesium Hydrox/Alum Hydrox 30 Ml Oral.Susp) 30 ml PO Q6H PRN PRN Reason: Heartburn/Nausea Cyclobenzaprine HCl (Cyclobenzaprine Hcl 10 Mg Tablet) 10 mg PO TID PRN PRN Reason: muscle spasm Last Admin: 07/20/21 19:27 Dose: 10 mg Documented by: Divalproex Sodium (Divalproex Sodium 250 Mg Tablet.) 250 mg PO BID [facility] Last Admin: 07/21/21 08:06 Dose: 250 mg Documented by: Folic Acid (Folic Acid 1 Mg Tablet) 1 mg PO DAILY [facility] Last Admin: 07/21/21 08:06 Dose: 1 mg Documented by: Gabapentin (Gabapentin 600 Mg Tablet) 600 mg PO TID [facility] Last Admin: 07/21/21 08:06 Dose: 600 mg Documented by: Hydroxyzine HCl (Hydroxyzine Hcl 25 Mg Tablet) 25 mg PO BEDTIME PRN PRN Reason: Anxiety Magnesium Hydroxide (Milk Of Magnesia 30 Ml Oral.Susp) 30 ml PO DAILY PRN PRN Reason: Constipation Last Admin: 07/19/21 14:02 Dose: 30 ml Documented by: Naproxen (Naproxen 500 Mg Tablet) 500 mg PO Q12H PRN PRN Reason: Pain, Mild (Pain Scale 1-3) Last Admin: 07/18/21 12:22 Dose: 500 mg Documented by: Olanzapine (Olanzapine 5 Mg Tablet) 5 mg PO BID PRN PRN Reason: racing thoughts Last Admin: 07/19/21 13:29 Dose: 5 mg Documented by: Pharmacy Consult (Consult Rx Perform Med Rec) 1 each MISCELLANE ONCE PRN PRN Reason: Consult order Prazosin HCl (Prazosin Hcl 1 Mg Capsule) 2 mg PO BEDTIME [facility]; Protocol Last Admin: 07/20/21 19:26 Dose: 2 mg Documented by: Prednisone (Prednisone 20 Mg Tablet) 60 mg PO DAILY [facility] Last Admin: 07/21/21 08:06 Dose: 60 mg Documented by: Trazodone HCl (Trazodone Hcl 50 Mg Tablet) 50 mg PO BEDTIME PRN PRN Reason: Insomnia Last Admin: 07/19/21 21:46 Dose: 50 mg Documented by: Allergies Allergies Allergy/AdvReac Type Severity Reaction Status Date / Time No Known Allergies Allergy Verified 07/09/21 16:18 Assessment & Plan Assessment & Plan (1) MDD (major depressive disorder), recurrent severe, without psychosis: Status: Acute Code(s): F33.2 - Major depressive disorder, recurrent severe without psychotic features (2) Post traumatic stress disorder (PTSD): Status: Acute Code(s): F43.10 - Post-traumatic stress disorder, unspecified Assessment and Plan: Pt is a 46 y.o. male who carries a dx of MDD, recurrent and PTSD. He has limited hx of psych services, no hx of IPLOC. He reports SI is new for him but he has been struggling with sx of depression and PTSD for years and these sx have been impacting his relationships and functioning. Pt has limited social supports and coping skills. 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 No substance abuse or ETOH abuse reported. Has co-morbid chronic pain issues and is wincing during interview. Says he is interested in med management, ?I think i need something for anxiety and when my brain starts to think of these bad episodes.? He reports he is supposed to be on gabapentin but has been unable to fill script due to recently relocating to [place], has been taking 500 mg TID. Discussed trial of clonidine 0.1 mg QHS to target sx of hyperarousal, anxiety, and poor sleep. Pt may benefit from SSRI to target sx of PTSD, depression, will defer to primary psych team for further management.? Pt is CV, Q15 min checks Monitor response to medications. Monitor for safety in the milieu. Discharge on stabilization. Patient seen. Chart reviewed. Discussed with team. Obtain collateral contact info?as needed 07/19/21: 1. Depakote 250 mg bid 2. Olanzapine 5 mg bid prn sx of racing thoughts-intrusive PTSD sx 3. Prazosin 1 mg HS to address nightmares 4. Hold Clonidine-we will need to eval which one helps pt the most 5. Eval for antidepressant rx when reported sx are improved 6. Refer to neurosurgery for cervical radiculopathy, lumbar disc herniation. 7 Folic Acid 1 mg daily Continue current regimen and plans with increase of prazosin to 2 mg q.h.s. 07/21/2021 continue current regimen and plans with increase of prazosin to 5 mg I spent minutes with the patient and/or on the patient floor today, greater than?50% of which was spent counseling/coordinating care. Reason for contiued inpatient stay Substantial Risk for: other
[2021-07-21] MEDS: OLANZapine 5 MG TABLET PO ×2 (12:52→17:57)
[2021-07-21] MEDS: Cyclobenzaprine HCl 10 MG TABLET PO ×2 (17:57→20:16)
[2021-07-21] MEDS: NaPROXEN 500 MG TABLET PO (17:58)
[2021-07-21 20:05] VITALS: BP 139/79; PULSE 79; TEMP 36.9
[2021-07-21 20:15] VITALS: BP 139/79; PULSE 79
[2021-07-21] MEDS: Prazosin HCL 1 MG CAPSULE 5 MG PO (20:15)
[2021-07-21] MEDS: traZODone HCL 50 MG TABLET PO (20:16)
[2021-07-22] MEDS: NaPROXEN 500 MG TABLET PO (09:05)
[2021-07-22] MEDS: Cyclobenzaprine HCl 10 MG TABLET PO ×3 (09:05→19:53)
[2021-07-22] MEDS: Gabapentin 600 MG TABLET PO ×3 (09:05→19:53)
[2021-07-22] MEDS: Folic Acid 1 MG TABLET PO (09:05)
[2021-07-22] MEDS: Divalproex Sodium 250 MG TABLET.DR PO ×3 (09:05→19:53)
[2021-07-22] MEDS: predniSONE 20 MG TABLET 60 MG PO (09:05)
--- NOTE | 2021-07-22 12:20 | PC.NURSE ---
Margarito declined offers for nicotine replacement therapy at this time. He did not want any nicotine gum nor a patch when offered.
[2021-07-22] MEDS: Magnesium Hydrox/Alum Hydrox 30 ML ORAL.SUSP PO (13:49)
[2021-07-22] MEDS: OLANZapine 5 MG TABLET PO (14:11)
[2021-07-22] MEDS: Omeprazole 20 MG CAPSULE.DR PO (16:08)
--- NOTE | 2021-07-22 17:47 | HO.PSYCHPN ---
Subjective Subjective Date of Service: 07/22/21 Reason For Visit: Major depression with SI Subjective Notes: Conditional Voluntary Healthcare Proxy: No Guardianship: No Medical Problems Affecting Mental Status: No Interim History: Pt reports some improvement. Review of regime-Olanzapine, Valproate, Gabapentin he finds useful. He discussed concerns in finding a PCP-asks to be affiliated with [facility]. Told him we would work on this. Medication Compliance: Yes Side effects from medications: No Attending Groups: Yes Review of Systems Acute medical concerns: No Medical Review of Systems: unchanged Review of Systems Psychiatric: Reports anxiety, Reports depression, Reports hopelessness, Reports irritability, Reports anhedonia and Reports mood swings Mental Status Exam Mental Status Exam Patient Appearance: Appropriate Patient Orientation: Person, Place, Time and Situation Level of Consciousness: Awake and Alert Patient Behavior: Appropriate, Talkative, Cooperative and Good Eye Contact Mood Description: Constricted Affect Description: Constricted Patient Cognition Impaired: No Ability to Follow Directions: Good Speech Pattern: Spontaneous Speech Memory Description: Intact Hallucinations: None Delusions: Not Present Perceptual Disturbances: Depersonalization and Derealization Thought Process: Goal Oriented Depressive Symptoms: Increased Anxiety, Insomnia, Diff. Making Decisions, Increased Irritability, Difficulty Sleeping, Loss of Int. in Activity, Thoughts of /Suicide, Low Self Esteem and Difficulty Concentrating Judgement: Fair Diagnostics Vital Signs (24Hr): Vital Signs - 24 hr 07/21/21 20:05 07/21/21 20:15 Temperature 98.4 F Pulse Rate 79 79 Blood Pressure 139/79 139/79 Body Mass Index 23.0 Labs Results: 07/17/21 21:49 07/17/21 21:49 Medications Medications Current Medications Acetaminophen (Acetaminophen 325 Mg Tablet) 650 mg PO Q6H PRN PRN Reason: Headache/Pain Mild Scale (1-3) Last Admin: 07/19/21 21:46 Dose: 650 mg Documented by: Al Hydroxide/Mg Hydroxide (Magnesium Hydrox/Alum Hydrox 30 Ml Oral.Susp) 30 ml PO Q6H PRN PRN Reason: Heartburn/Nausea Last Admin: 07/22/21 13:49 Dose: 30 ml Documented by: Cyclobenzaprine HCl (Cyclobenzaprine Hcl 10 Mg Tablet) 10 mg PO TID [facility] Last Admin: 07/22/21 14:11 Dose: 10 mg Documented by: Divalproex Sodium (Divalproex Sodium 250 Mg Tablet.Dr) 250 mg PO TID [facility] Last Admin: 07/22/21 14:11 Dose: 250 mg Documented by: Folic Acid (Folic Acid 1 Mg Tablet) 1 mg PO DAILY [facility] Last Admin: 07/22/21 09:05 Dose: 1 mg Documented by: Gabapentin (Gabapentin 600 Mg Tablet) 600 mg PO TID [facility] Last Admin: 07/22/21 14:11 Dose: 600 mg Documented by: Hydroxyzine HCl (Hydroxyzine Hcl 25 Mg Tablet) 25 mg PO BEDTIME PRN PRN Reason: Anxiety Magnesium Hydroxide (Milk Of Magnesia 30 Ml Oral.Susp) 30 ml PO DAILY PRN PRN Reason: Constipation Last Admin: 07/19/21 14:02 Dose: 30 ml Documented by: Multivitamins/Vitamin C (Multivitamin Tablet) 1 tab PO DAILY [facility] Naproxen (Naproxen 500 Mg Tablet) 500 mg PO Q12H PRN PRN Reason: Pain, Mild (Pain Scale 1-3) Last Admin: 07/22/21 09:05 Dose: 500 mg Documented by: Olanzapine (Olanzapine 5 Mg Tablet) 5 mg PO BID PRN PRN Reason: racing thoughts Last Admin: 07/22/21 14:11 Dose: 5 mg Documented by: Olanzapine (Olanzapine 10 Mg Tablet) 10 mg PO BEDTIME [facility] Omeprazole (Omeprazole 20 Mg Capsule.) 20 mg PO BID@0630,1630 [facility] Last Admin: 07/22/21 16:08 Dose: 20 mg Documented by: Pharmacy Consult (Consult Rx Perform Med Rec) 1 each MISCELLANE ONCE PRN PRN Reason: Consult order Prazosin HCl (Prazosin Hcl 1 Mg Capsule) 5 mg PO BEDTIME [facility]; Protocol Last Admin: 07/21/21 20:15 Dose: 5 mg Documented by: Prednisone (Prednisone 20 Mg Tablet) 60 mg PO DAILY [facility] Last Admin: 07/22/21 09:05 Dose: 60 mg Documented by: Trazodone HCl (Trazodone Hcl 50 Mg Tablet) 50 mg PO BEDTIME PRN PRN Reason: Insomnia Last Admin: 07/21/21 20:16 Dose: 50 mg Documented by: Vitamin D (Cholecalciferol (Vitamin D3) 10 Mcg Tablet) 10 mcg PO DAILY [facility] Allergies Allergies Allergy/AdvReac Type Severity Reaction Status Date / Time No Known Allergies Allergy Verified 07/09/21 16:18 Assessment & Plan Assessment & Plan (1) MDD (major depressive disorder), recurrent severe, without psychosis: Status: Acute Code(s): F33.2 - Major depressive disorder, recurrent severe without psychotic features (2) Post traumatic stress disorder (PTSD): Status: Acute Code(s): F43.10 - Post-traumatic stress disorder, unspecified Assessment and Plan: Pt is a 46 y.o. male who carries a dx of MDD, recurrent and PTSD. He has limited hx of psych services, no hx of IPLOC. He reports SI is new for him but he has been struggling with sx of depression and PTSD for years and these sx have been impacting his relationships and functioning. Pt has limited social supports and coping skills. 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 No substance abuse or ETOH abuse reported. Has co-morbid chronic pain issues and is wincing during interview. Says he is interested in med management, ?I think i need something for anxiety and when my brain starts to think of these bad episodes.? He reports he is supposed to be on gabapentin but has been unable to fill script due to recently relocating to [place], has been taking 500 mg TID. Discussed trial of clonidine 0.1 mg QHS to target sx of hyperarousal, anxiety, and poor sleep. Pt may benefit from SSRI to target sx of PTSD, depression, will defer to primary psych team for further management.? Pt is CV, Q15 min checks Monitor response to medications. Monitor for safety in the milieu. Discharge on stabilization. Patient seen. Chart reviewed. Discussed with team. Obtain collateral contact info?as needed 07/19/21: 1. Depakote 250 mg bid 2. Olanzapine 5 mg bid prn sx of racing thoughts-intrusive PTSD sx 3. Prazosin 1 mg HS to address nightmares 4. Hold Clonidine-we will need to eval which one helps pt the most 5. Eval for antidepressant rx when reported sx are improved 6. Refer to neurosurgery for cervical radiculopathy, lumbar disc herniation. 7 Folic Acid 1 mg daily Continue current regimen and plans with increase of prazosin to 2 mg q.h.s. 07/21/2021 continue current regimen and plans with increase of prazosin to 5 mg 07/22/21 Increase Depakote to 250 mg tid Prilosec 20 mg bid Change Flexoril to scheduled from prn. I spent 30 minutes with the patient and/or on the patient floor today, greater than?50% of which was spent counseling/coordinating care. Patient educated on: medication risk/benefits, therapeutic strategies and medical condition Informed Consent: understands Reason for contiued inpatient stay Substantial Risk for: harm to self, inability to function and rapid decompensation
[2021-07-22 19:51] VITALS: BP 145/76; PULSE 124
[2021-07-22] MEDS: Prazosin HCL 1 MG CAPSULE 5 MG PO (19:51)
[2021-07-22] MEDS: OLANZapine 10 MG TABLET PO (19:53)
[2021-07-23] MEDS: Omeprazole 20 MG CAPSULE.DR PO ×2 (06:41→16:05)
[2021-07-23] MEDS: Gabapentin 600 MG TABLET PO ×3 (09:02→20:03)
[2021-07-23] MEDS: Multivitamin TABLET 1 TAB PO (09:03)
[2021-07-23] MEDS: predniSONE 20 MG TABLET 60 MG PO (09:03)
[2021-07-23] MEDS: Divalproex Sodium 250 MG TABLET.DR PO ×3 (09:03→20:01)
[2021-07-23] MEDS: Cyclobenzaprine HCl 10 MG TABLET PO ×3 (09:03→20:02)
[2021-07-23] MEDS: Folic Acid 1 MG TABLET PO (09:05)
[2021-07-23] MEDS: Cholecalciferol (Vitamin D3) 10 MCG TABLET PO (09:05)
[2021-07-23] MEDS: OLANZapine 5 MG TABLET PO ×2 (09:53→15:05)
--- NOTE | 2021-07-23 15:28 | P.PNPSI_ITS ---
Subjective Subjective Date of Service: 07/23/21 Reason For Visit: Major depression with SI Subjective Notes: Conditional Voluntary Healthcare Proxy: No Guardianship: No Medical Problems Affecting Mental Status: No Interim History: Margarito continues to have symptoms of insomnia with nightmares. Discussed adding Mirtazapine 15 mg HS, increasing Olanzapine to 15 mg hs and stopping Trazodone. Overall states he is feeling some improvement. Medication Compliance: Yes Side effects from medications: No Attending Groups: Yes Review of Systems Acute medical concerns: No Medical Review of Systems: unchanged Review of Systems Psychiatric: Reports anxiety, Reports depression, Reports hopelessness, Reports irritability, Reports anhedonia and Reports mood swings Mental Status Exam Mental Status Exam Patient Appearance: Appropriate Patient Orientation: Person, Place, Time and Situation Level of Consciousness: Awake and Alert Patient Behavior: Appropriate, Talkative, Cooperative and Good Eye Contact Mood Description: Constricted Affect Description: Constricted Patient Cognition Impaired: No Ability to Follow Directions: Good Speech Pattern: Spontaneous Speech Memory Description: Intact Hallucinations: None Delusions: Not Present Perceptual Disturbances: Depersonalization and Derealization Thought Process: Goal Oriented Depressive Symptoms: Increased Anxiety, Insomnia, Diff. Making Decisions, Increased Irritability, Difficulty Sleeping, Loss of Int. in Activity, Thoughts of /Suicide, Low Self Esteem and Difficulty Concentrating Judgement: Fair Diagnostics Vital Signs (24Hr): Vital Signs - 24 hr 07/22/21 19:51 Pulse Rate 124 H Blood Pressure 145/76 H Body Mass Index 23.0 Labs Results: 07/17/21 21:49 07/17/21 21:49 Medications Medications Current Medications Acetaminophen (Acetaminophen 325 Mg Tablet) 650 mg PO Q6H PRN PRN Reason: Headache/Pain Mild Scale (1-3) Last Admin: 07/19/21 21:46 Dose: 650 mg Documented by: Al Hydroxide/Mg Hydroxide (Magnesium Hydrox/Alum Hydrox 30 Ml Oral.Susp) 30 ml PO Q6H PRN PRN Reason: Heartburn/Nausea Last Admin: 07/22/21 13:49 Dose: 30 ml Documented by: Cyclobenzaprine HCl (Cyclobenzaprine Hcl 10 Mg Tablet) 10 mg PO TID [facility] Last Admin: 07/23/21 15:05 Dose: 10 mg Documented by: Divalproex Sodium (Divalproex Sodium 250 Mg Tablet.) 250 mg PO TID [facility] Last Admin: 07/23/21 15:04 Dose: 250 mg Documented by: Folic Acid (Folic Acid 1 Mg Tablet) 1 mg PO DAILY [facility] Last Admin: 07/23/21 09:05 Dose: 1 mg Documented by: Gabapentin (Gabapentin 600 Mg Tablet) 600 mg PO TID [facility] Last Admin: 07/23/21 15:04 Dose: 600 mg Documented by: Hydroxyzine HCl (Hydroxyzine Hcl 25 Mg Tablet) 25 mg PO BEDTIME PRN PRN Reason: Anxiety Magnesium Hydroxide (Milk Of Magnesia 30 Ml Oral.Susp) 30 ml PO DAILY PRN PRN Reason: Constipation Last Admin: 07/19/21 14:02 Dose: 30 ml Documented by: Mirtazapine (Mirtazapine 15 Mg Tablet) 15 mg PO BEDTIME [facility] Multivitamins/Vitamin C (Multivitamin Tablet) 1 tab PO DAILY [facility] Last Admin: 07/23/21 09:03 Dose: 1 tab Documented by: Naproxen (Naproxen 500 Mg Tablet) 500 mg PO Q12H PRN PRN Reason: Pain, Mild (Pain Scale 1-3) Last Admin: 07/22/21 09:05 Dose: 500 mg Documented by: Olanzapine (Olanzapine 5 Mg Tablet) 5 mg PO BID PRN PRN Reason: racing thoughts Last Admin: 07/23/21 15:05 Dose: 5 mg Documented by: Olanzapine (Olanzapine 7.5 Mg Tablet) 15 mg PO BEDTIME [facility] Omeprazole (Omeprazole 20 Mg Capsule.Dr) 20 mg PO BID@0630,1630 [facility] Last Admin: 07/23/21 06:41 Dose: 20 mg Documented by: Pharmacy Consult (Consult Rx Perform Med Rec) 1 each MISCELLANE ONCE PRN PRN Reason: Consult order Prazosin HCl (Prazosin Hcl 1 Mg Capsule) 5 mg PO BEDTIME [facility]; Protocol Last Admin: 07/22/21 19:51 Dose: 5 mg Documented by: Prednisone (Prednisone 20 Mg Tablet) 60 mg PO DAILY [facility] Last Admin: 07/23/21 09:03 Dose: 60 mg Documented by: Vitamin D (Cholecalciferol (Vitamin D3) 10 Mcg Tablet) 10 mcg PO DAILY [facility] Last Admin: 07/23/21 09:05 Dose: 10 mcg Documented by: Allergies Allergies Allergy/AdvReac Type Severity Reaction Status Date / Time No Known Allergies Allergy Verified 07/09/21 16:18 Assessment & Plan Assessment & Plan (1) MDD (major depressive disorder), recurrent severe, without psychosis: Status: Acute Code(s): F33.2 - Major depressive disorder, recurrent severe without psychotic features (2) Post traumatic stress disorder (PTSD): Status: Acute Code(s): F43.10 - Post-traumatic stress disorder, unspecified Assessment and Plan: Pt is a 46 y.o. male who carries a dx of MDD, recurrent and PTSD. He has limited hx of psych services, no hx of IPLOC. He reports SI is new for him but he has been struggling with sx of depression and PTSD for years and these sx have been impacting his relationships and functioning. Pt has limited social supports and coping skills. 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 No substance abuse or ETOH abuse reported. Has co-morbid chronic pain issues and is wincing during interview. Says he is interested in med management, ?I think i need something for anxiety and when my brain starts to think of these bad episodes.? He reports he is supposed to be on gabapentin but has been unable to fill script due to recently relocating to [place], has been taking 500 mg TID. Discussed trial of clonidine 0.1 mg QHS to target sx of hyperarousal, anxiety, and poor sleep. Pt may benefit from SSRI to target sx of PTSD, depression, will defer to primary psych team for further management.? Pt is CV, Q15 min checks Monitor response to medications. Monitor for safety in the milieu. Discharge on stabilization. Patient seen. Chart reviewed. Discussed with team. Obtain collateral contact info?as needed 07/19/21: 1. Depakote 250 mg bid 2. Olanzapine 5 mg bid prn sx of racing thoughts-intrusive PTSD sx 3. Prazosin 1 mg HS to address nightmares 4. Hold Clonidine-we will need to eval which one helps pt the most 5. Eval for antidepressant rx when reported sx are improved 6. Refer to neurosurgery for cervical radiculopathy, lumbar disc herniation. 7 Folic Acid 1 mg daily Continue current regimen and plans with increase of prazosin to 2 mg q.h.s. 07/21/2021 continue current regimen and plans with increase of prazosin to 5 mg 07/22/21 Increase Depakote to 250 mg tid Prilosec 20 mg bid Change Flexoril to scheduled from prn. 07/23/21 Increase Olanzapine to 15 mg hs Remeron 15 mg hs Discontinue Trazodone I spent 30 minutes with the patient and/or on the patient floor today, greater than?50% of which was spent counseling/coordinating care. Patient educated on: medication risk/benefits and therapeutic strategies Informed Consent: understands and further education needed Reason for contiued inpatient stay Substantial Risk for: harm to self, inability to function, rapid decompensation and med/psych decompensation
[2021-07-23 16:07] VITALS: BP 137/85; PULSE 123; RESP 18; TEMP 36.6; O2SAT 97
[2021-07-23 20:00] VITALS: BP 138/79; PULSE 90
[2021-07-23] MEDS: Prazosin HCL 1 MG CAPSULE 5 MG PO (20:00)
[2021-07-23] MEDS: OLANZapine 7.5 MG TABLET 15 MG PO (20:03)
[2021-07-23] MEDS: Mirtazapine 15 MG TABLET PO (20:03)
[2021-07-24 06:00] VITALS: BP 118/68; PULSE 89; TEMP 36.3; O2SAT 98
[2021-07-24] MEDS: Omeprazole 20 MG CAPSULE.DR PO ×2 (06:45→16:57)
[2021-07-24] MEDS: Folic Acid 1 MG TABLET PO (08:30)
[2021-07-24] MEDS: Cholecalciferol (Vitamin D3) 10 MCG TABLET PO (08:30)
[2021-07-24] MEDS: predniSONE 20 MG TABLET 60 MG PO (08:30)
[2021-07-24] MEDS: Divalproex Sodium 250 MG TABLET.DR PO ×3 (08:30→20:06)
[2021-07-24] MEDS: Gabapentin 600 MG TABLET PO (08:30)
[2021-07-24] MEDS: Cyclobenzaprine HCl 10 MG TABLET PO ×3 (08:30→20:05)
[2021-07-24] MEDS: Multivitamin TABLET 1 TAB PO (08:30)
[2021-07-24] MEDS: Gabapentin 400 MG CAPSULE 800 MG PO ×2 (14:11→20:06)
--- NOTE | 2021-07-24 17:27 | P.PNPSI_ITS ---
Subjective Subjective Date of Service: 07/24/21 Reason For Visit: Major depression with SI Subjective Notes: Conditional Voluntary Healthcare Proxy: No Guardianship: No Medical Problems Affecting Mental Status: No Interim History: I slept and I finally feel Ok for the first time in a long jose e. Reports efficacy with Remeron-as discussed did have hangover feeling which hydration was helpful with. Overall pleased with how he feels today. As a result, he has been able to move forward on tasks to help himself-will have a call with disability on 9am-is working on MRC and DTA information given to him by Tejas Magdaleno [facility]. Tells team he is not hearing voices but meds are working to help him manage anxiety. Discussed pain- 03/16-Review of regime, will titrate Gabapentin to 800 mg tid. Medication Compliance: No Side effects from medications: No Attending Groups: Yes Review of Systems Acute medical concerns: No Medical Review of Systems: unchanged Review of Systems Psychiatric: Reports abnormal sleep pattern, Reports anxiety, Reports depression and Reports difficulty concentrating Mental Status Exam Mental Status Exam Patient Appearance: Appropriate Patient Orientation: Person, Place, Time and Situation Level of Consciousness: Awake and Alert Patient Behavior: Appropriate, Talkative, Cooperative and Good Eye Contact Mood Description: Constricted Affect Description: Constricted Patient Cognition Impaired: No Ability to Follow Directions: Good Speech Pattern: Spontaneous Speech Memory Description: Intact Hallucinations: None Delusions: Not Present Perceptual Disturbances: Depersonalization and Derealization Thought Process: Goal Oriented Depressive Symptoms: Increased Anxiety, Insomnia, Diff. Making Decisions, Increased Irritability, Difficulty Sleeping, Loss of Int. in Activity, Thoughts of /Suicide, Low Self Esteem and Difficulty Concentrating Judgement: Fair Diagnostics Vital Signs (24Hr): Vital Signs - 24 hr 07/23/21 20:00 07/24/21 06:00 Temperature 97.3 F Pulse Rate 90 89 Blood Pressure 138/79 118/68 Pulse Oximetry 98 Body Mass Index 23.0 Labs Results: 07/17/21 21:49 07/17/21 21:49 Medications Medications Current Medications Acetaminophen (Acetaminophen 325 Mg Tablet) 650 mg PO Q6H PRN PRN Reason: Headache/Pain Mild Scale (1-3) Last Admin: 07/19/21 21:46 Dose: 650 mg Documented by: Al Hydroxide/Mg Hydroxide (Magnesium Hydrox/Alum Hydrox 30 Ml Oral.Susp) 30 ml PO Q6H PRN PRN Reason: Heartburn/Nausea Last Admin: 07/22/21 13:49 Dose: 30 ml Documented by: Cyclobenzaprine HCl (Cyclobenzaprine Hcl 10 Mg Tablet) 10 mg PO TID [facility] Last Admin: 07/24/21 14:11 Dose: 10 mg Documented by: Divalproex Sodium (Divalproex Sodium 250 Mg Tablet.) 250 mg PO TID [facility] Last Admin: 07/24/21 14:12 Dose: 250 mg Documented by: Folic Acid (Folic Acid 1 Mg Tablet) 1 mg PO DAILY [facility] Last Admin: 07/24/21 08:30 Dose: 1 mg Documented by: Gabapentin (Gabapentin 400 Mg Capsule) 800 mg PO TID [facility] Last Admin: 07/24/21 14:11 Dose: 800 mg Documented by: Hydroxyzine HCl (Hydroxyzine Hcl 25 Mg Tablet) 25 mg PO BEDTIME PRN PRN Reason: Anxiety Magnesium Hydroxide (Milk Of Magnesia 30 Ml Oral.Susp) 30 ml PO DAILY PRN PRN Reason: Constipation Last Admin: 07/19/21 14:02 Dose: 30 ml Documented by: Mirtazapine (Mirtazapine 15 Mg Tablet) 15 mg PO BEDTIME [facility] Last Admin: 07/23/21 20:03 Dose: 15 mg Documented by: Multivitamins/Vitamin C (Multivitamin Tablet) 1 tab PO DAILY [facility] Last Admin: 07/24/21 08:30 Dose: 1 tab Documented by: Naproxen (Naproxen 500 Mg Tablet) 500 mg PO Q12H PRN PRN Reason: Pain, Mild (Pain Scale 1-3) Last Admin: 07/22/21 09:05 Dose: 500 mg Documented by: Olanzapine (Olanzapine 5 Mg Tablet) 5 mg PO BID PRN PRN Reason: racing thoughts Last Admin: 07/23/21 15:05 Dose: 5 mg Documented by: Olanzapine (Olanzapine 7.5 Mg Tablet) 15 mg PO BEDTIME [facility] Last Admin: 07/23/21 20:03 Dose: 15 mg Documented by: Omeprazole (Omeprazole 20 Mg Capsule.) 20 mg PO BID@0630,1630 [facility] Last Admin: 07/24/21 16:57 Dose: 20 mg Documented by: Pharmacy Consult (Consult Rx Perform Med Rec) 1 each MISCELLANE ONCE PRN PRN Reason: Consult order Prazosin HCl (Prazosin Hcl 1 Mg Capsule) 5 mg PO BEDTIME [facility]; Protocol Last Admin: 07/23/21 20:00 Dose: 5 mg Documented by: Prednisone (Prednisone 20 Mg Tablet) 60 mg PO DAILY [facility] Last Admin: 07/24/21 08:30 Dose: 60 mg Documented by: Vitamin D (Cholecalciferol (Vitamin D3) 10 Mcg Tablet) 10 mcg PO DAILY [facility] Last Admin: 07/24/21 08:30 Dose: 10 mcg Documented by: Allergies Allergies Allergy/AdvReac Type Severity Reaction Status Date / Time No Known Allergies Allergy Verified 07/09/21 16:18 Assessment & Plan Assessment & Plan (1) MDD (major depressive disorder), recurrent severe, without psychosis: Status: Acute Code(s): F33.2 - Major depressive disorder, recurrent severe without psychotic features (2) Post traumatic stress disorder (PTSD): Status: Acute Code(s): F43.10 - Post-traumatic stress disorder, unspecified Assessment and Plan: Pt is a 46 y.o. male who carries a dx of MDD, recurrent and PTSD. He has limited hx of psych services, no hx of IPLOC. He reports SI is new for him but he has been struggling with sx of depression and PTSD for years and these sx have been impacting his relationships and functioning. Pt has limited social supports and coping skills. 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 No substance abuse or ETOH abuse reported. Has co-morbid chronic pain issues and is wincing during interview. Says he is interested in med management, ?I think i need something for anxiety and when my brain starts to think of these bad episodes.? He reports he is supposed to be on gabapentin but has been unable to fill script due to recently relocating to [place], has been taking 500 mg TID. Discussed trial of clonidine 0.1 mg QHS to target sx of hyperarousal, anxiety, and poor sleep. Pt may benefit from SSRI to target sx of PTSD, depression, will defer to primary psych team for further management.? Pt is CV, Q15 min checks Monitor response to medications. Monitor for safety in the milieu. Discharge on stabilization. Patient seen. Chart reviewed. Discussed with team. Obtain collateral contact info?as needed 07/19/21: 1. Depakote 250 mg bid 2. Olanzapine 5 mg bid prn sx of racing thoughts-intrusive PTSD sx 3. Prazosin 1 mg HS to address nightmares 4. Hold Clonidine-we will need to eval which one helps pt the most 5. Eval for antidepressant rx when reported sx are improved 6. Refer to neurosurgery for cervical radiculopathy, lumbar disc herniation. 7 Folic Acid 1 mg daily Continue current regimen and plans with increase of prazosin to 2 mg q.h.s. 07/21/2021 continue current regimen and plans with increase of prazosin to 5 mg 07/22/21 Increase Depakote to 250 mg tid Prilosec 20 mg bid Change Flexoril to scheduled from prn. 07/24/21 Increase Gabapentin to 800 mg tid Pain 03/16 Continue other meds-pt reports a positive sleep experience last night. I spent 30 minutes with the patient and/or on the patient floor today, greater than?50% of which was spent counseling/coordinating care. Patient educated on: medication risk/benefits and therapeutic strategies Informed Consent: understands and further education needed Reason for contiued inpatient stay Substantial Risk for: harm to self, inability to function and rapid decompensation
[2021-07-24] MEDS: Milk of Magnesia 30 ML ORAL.SUSP PO (18:17)
[2021-07-24 20:00] VITALS: BP 133/74; PULSE 107; TEMP 36.7
[2021-07-24 20:07] VITALS: BP 133/74; PULSE 107
[2021-07-24] MEDS: OLANZapine 7.5 MG TABLET 15 MG PO (20:07)
[2021-07-24] MEDS: Prazosin HCL 1 MG CAPSULE 5 MG PO (20:07)
[2021-07-24] MEDS: Mirtazapine 15 MG TABLET PO (20:07)
[2021-07-25 06:00] VITALS: BP 134/73; PULSE 102; RESP 18; TEMP 36.2; O2SAT 98
[2021-07-25] MEDS: Omeprazole 20 MG CAPSULE.DR PO ×2 (06:33→16:58)
[2021-07-25 07:00] VITALS: BMI 26.9
[2021-07-25] MEDS: Folic Acid 1 MG TABLET PO (08:39)
[2021-07-25] MEDS: Divalproex Sodium 250 MG TABLET.DR PO ×3 (08:39→20:06)
[2021-07-25] MEDS: Cholecalciferol (Vitamin D3) 10 MCG TABLET PO (08:39)
[2021-07-25] MEDS: predniSONE 20 MG TABLET 60 MG PO (08:39)
[2021-07-25] MEDS: Gabapentin 400 MG CAPSULE 800 MG PO ×3 (08:39→20:04)
[2021-07-25] MEDS: Cyclobenzaprine HCl 10 MG TABLET PO ×3 (08:39→20:04)
[2021-07-25] MEDS: Multivitamin TABLET 1 TAB PO (08:40)
--- NOTE | 2021-07-25 11:38 | PC.NURSE ---
Signed a 3 day up on 07/30. aware, social work aware, UR aware.
--- NOTE | 2021-07-25 12:37 | PC.NURSE ---
Patient retracted three day notice on 07/25/21. Psychiatric medication provider, nursing, and social work notified.
--- NOTE | 2021-07-25 14:50 | P.PNPSI_ITS ---
Subjective Subjective Date of Service: 07/25/21 Reason For Visit: Major depression with SI Subjective Notes: Conditional Voluntary and 3 Day Healthcare Proxy: No Guardianship: No Medical Problems Affecting Mental Status: No Interim History: Pt ready for discharge. Sleeping well he reports, feeling improved, like himself. Has DTA/SSI/Disability in progress. Plan for discharge 07/26. Pt accepting of aftercare and will call/return if needed. Medication Compliance: No Side effects from medications: No Attending Groups: No Review of Systems Acute medical concerns: No Medical Review of Systems: unchanged Review of Systems Psychiatric: Reports no additional psychiatric complaints Mental Status Exam Mental Status Exam Patient Appearance: Appropriate Patient Orientation: Person, Place, Time and Situation Level of Consciousness: Awake and Alert Patient Behavior: Talkative Mood Description: Calm Affect Description: Calm Patient Cognition Impaired: No Ability to Follow Directions: Good Speech Pattern: Spontaneous Speech Memory Description: Intact Hallucinations: None Delusions: Not Present Thought Process: Intact Thought Content: positive for Intact Judgement: Good Diagnostics Vital Signs (24Hr): Vital Signs - 24 hr 07/24/21 20:00 07/24/21 20:07 07/25/21 06:00 Temperature 98.1 F 97.2 F Pulse Rate 107 H 107 H 102 H Respiratory Rate 18 Blood Pressure 133/74 133/74 134/73 Pulse Oximetry 98 Body Mass Index 26.9 Labs Results: 07/26/21 07:57 07/26/21 07:57 Medications Medications Current Medications Acetaminophen (Acetaminophen 325 Mg Tablet) 650 mg PO Q6H PRN PRN Reason: Headache/Pain Mild Scale (1-3) Last Admin: 07/19/21 21:46 Dose: 650 mg Documented by: Al Hydroxide/Mg Hydroxide (Magnesium Hydrox/Alum Hydrox 30 Ml Oral.Susp) 30 ml PO Q6H PRN PRN Reason: Heartburn/Nausea Last Admin: 07/22/21 13:49 Dose: 30 ml Documented by: Cyclobenzaprine HCl (Cyclobenzaprine Hcl 10 Mg Tablet) 10 mg PO TID [facility] Last Admin: 07/25/21 14:22 Dose: 10 mg Documented by: Divalproex Sodium (Divalproex Sodium 250 Mg Tablet.Dr) 250 mg PO TID [facility] Last Admin: 07/25/21 14:22 Dose: 250 mg Documented by: Folic Acid (Folic Acid 1 Mg Tablet) 1 mg PO DAILY [facility] Last Admin: 07/25/21 08:39 Dose: 1 mg Documented by: Gabapentin (Gabapentin 400 Mg Capsule) 800 mg PO TID [facility] Last Admin: 07/25/21 14:22 Dose: 800 mg Documented by: Hydroxyzine HCl (Hydroxyzine Hcl 25 Mg Tablet) 25 mg PO BEDTIME PRN PRN Reason: Anxiety Magnesium Hydroxide (Milk Of Magnesia 30 Ml Oral.Susp) 30 ml PO DAILY PRN PRN Reason: Constipation Last Admin: 07/24/21 18:17 Dose: 30 ml Documented by: Mirtazapine (Mirtazapine 15 Mg Tablet) 15 mg PO BEDTIME [facility] Last Admin: 07/24/21 20:07 Dose: 15 mg Documented by: Multivitamins/Vitamin C (Multivitamin Tablet) 1 tab PO DAILY [facility] Last Admin: 07/25/21 08:40 Dose: 1 tab Documented by: Naproxen (Naproxen 500 Mg Tablet) 500 mg PO Q12H PRN PRN Reason: Pain, Mild (Pain Scale 1-3) Last Admin: 07/22/21 09:05 Dose: 500 mg Documented by: Olanzapine (Olanzapine 5 Mg Tablet) 5 mg PO BID PRN PRN Reason: racing thoughts Last Admin: 07/23/21 15:05 Dose: 5 mg Documented by: Olanzapine (Olanzapine 7.5 Mg Tablet) 15 mg PO BEDTIME [facility] Last Admin: 07/24/21 20:07 Dose: 15 mg Documented by: Omeprazole (Omeprazole 20 Mg Capsule.Dr) 20 mg PO BID@0630,1630 [facility] Last Admin: 07/25/21 06:33 Dose: 20 mg Documented by: Pharmacy Consult (Consult Rx Perform Med Rec) 1 each MISCELLANE ONCE PRN PRN Reason: Consult order Prazosin HCl (Prazosin Hcl 1 Mg Capsule) 5 mg PO BEDTIME [facility]; Protocol Last Admin: 07/24/21 20:07 Dose: 5 mg Documented by: Prednisone (Prednisone 20 Mg Tablet) 60 mg PO DAILY [facility] Last Admin: 07/25/21 08:39 Dose: 60 mg Documented by: Vitamin D (Cholecalciferol (Vitamin D3) 10 Mcg Tablet) 10 mcg PO DAILY [facility] Last Admin: 07/25/21 08:39 Dose: 10 mcg Documented by: Allergies Allergies Allergy/AdvReac Type Severity Reaction Status Date / Time No Known Allergies Allergy Verified 07/09/21 16:18 Assessment & Plan Assessment & Plan (1) MDD (major depressive disorder), recurrent severe, without psychosis: Status: Acute Code(s): F33.2 - Major depressive disorder, recurrent severe without psychotic features (2) Post traumatic stress disorder (PTSD): Status: Acute Code(s): F43.10 - Post-traumatic stress disorder, unspecified Assessment and Plan: Pt is a 46 y.o. male who carries a dx of MDD, recurrent and PTSD. He has limited hx of psych services, no hx of IPLOC. He reports SI is new for him but he has been struggling with sx of depression and PTSD for years and these sx have been impacting his relationships and functioning. Pt has limited social supports and coping skills. 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 No substance abuse or ETOH abuse reported. Has co-morbid chronic pain issues and is wincing during interview. Says he is interested in med management, ?I think i need something for anxiety and when my brain starts to think of these bad episodes.? He reports he is supposed to be on gabapentin but has been unable to fill script due to recently relocating to [place], has been taking 500 mg TID. Discussed trial of clonidine 0.1 mg QHS to target sx of hyperarousal, anxiety, and poor sleep. Pt may benefit from SSRI to target sx of PTSD, depression, will defer to primary psych team for further management.? Pt is CV, Q15 min checks Monitor response to medications. Monitor for safety in the milieu. Discharge on stabilization. Patient seen. Chart reviewed. Discussed with team. Obtain collateral contact info?as needed 07/19/21: 1. Depakote 250 mg bid 2. Olanzapine 5 mg bid prn sx of racing thoughts-intrusive PTSD sx 3. Prazosin 1 mg HS to address nightmares 4. Hold Clonidine-we will need to eval which one helps pt the most 5. Eval for antidepressant rx when reported sx are improved 6. Refer to neurosurgery for cervical radiculopathy, lumbar disc herniation. 7 Folic Acid 1 mg daily Continue current regimen and plans with increase of prazosin to 2 mg q.h.s. 07/21/2021 continue current regimen and plans with increase of prazosin to 5 mg 07/22/21 Increase Depakote to 250 mg tid Prilosec 20 mg bid Change Flexoril to scheduled from prn. 07/24/21 Increase Gabapentin to 800 mg tid Pain 03/16 Continue other meds-pt reports a positive sleep experience last night. 07/25/21 Discharge 07/26 Labs in the a.m. I spent 35 minutes with the patient and/or on the patient floor today, greater than?50% of which was spent counseling/coordinating care. Patient educated on: medication risk/benefits Informed Consent: understands Reason for contiued inpatient stay Substantial Risk for: stable for discharge
[2021-07-25 19:55] VITALS: BP 135/79; PULSE 106; TEMP 36.7
[2021-07-25] MEDS: OLANZapine 7.5 MG TABLET 15 MG PO (20:06)
[2021-07-25] MEDS: Mirtazapine 15 MG TABLET PO (20:06)
[2021-07-25 20:09] VITALS: BP 135/79; PULSE 106
[2021-07-25] MEDS: Prazosin HCL 1 MG CAPSULE 5 MG PO (20:09)
[2021-07-26 07:01] VITALS: BP 128/75; PULSE 85; RESP 17; TEMP 36.1; O2SAT 97
[2021-07-26] MEDS: Omeprazole 20 MG CAPSULE.DR PO (07:23)
[2021-07-26] MEDS: predniSONE 20 MG TABLET 60 MG PO (07:40)
[2021-07-26] MEDS: Folic Acid 1 MG TABLET PO (07:40)
[2021-07-26] MEDS: Cyclobenzaprine HCl 10 MG TABLET PO ×2 (07:40→13:16)
[2021-07-26] MEDS: Cholecalciferol (Vitamin D3) 10 MCG TABLET PO (07:40)
[2021-07-26] MEDS: Divalproex Sodium 250 MG TABLET.DR PO ×2 (07:40→13:16)
[2021-07-26] MEDS: Multivitamin TABLET 1 TAB PO (07:40)
[2021-07-26] MEDS: Gabapentin 400 MG CAPSULE 800 MG PO ×2 (07:40→13:16)
[2021-07-26 08:06] LABS: MANUAL DIFF FLAG NO
[2021-07-26 08:09] LABS: Basophils Percent Auto 0.2 % (0-2); Eosinophils Absolute Auto 0.1 X10*3/uL (0.0-0.4); Eosinophils Percent Auto 0.7 % (0-4); Hematocrit 41.7 % (42.0-52.0); Hemoglobin 14.6 g/dl (14.0-18.0); Imm Gran Abs Auto 0.33 X10*3/uL (0.00-0.03); Lymphocytes Absolute Auto 2.5 X10*3/uL (1.2-4.9); Lymphocytes Percent Auto 15.1 % (20-40); Mean Corpuscular Hemoglobin 30.1 pg (27.0-33.0); Mean Platelet Volume 9.5 fL (9.4-12.4); Monocytes Absolute Auto 1.1 X10*3/uL (0.1-1.2); Monocytes Percent Auto 6.8 % (2-11); Neutrophils Absolute Auto 12.3 x10*3/uL (2.0-8.3); Neutrophils Percent Auto 75.2 % (45-73); Platelet Count 244 X10*3/uL (160-400); Red Blood Count 4.85 X10*6/uL (4.60-5.80); White Blood Count 16.3 X10*3/uL (4.8-10.8)
[2021-07-26 08:34] LABS: Alanine Aminotransferase 29 U/L (0-40); Alkaline Phosphatase 57 U/L (39-117); Anion Gap 15 (12-20); Aspartate Amino Transferase 13 U/L (5-37); Bilirubin Total 0.9 mg/dL (0.0-1.0); Blood Urea Nitrogen 19 mg/dL (9-16); Calcium 9.4 mg/dL (8.4-10.2); Carbon Dioxide 26 mmol/L (22-29); Chloride 99 mmol/L (96-108); Estimated Glomerular Filt Rate > 60; Glucose Random 119 mg/dL (60-115); Sodium 136 mmol/L (135-145); Total Protein 6.7 g/dL (6.5-8.0)
[2021-07-26 08:40] LABS: Valproate 40.1 mcg/mL (50.0-100.0)
--- NOTE | 2021-07-28 07:55 | P.DS_ITS ---
DS: Providers Provider Date of Service: 07/26/21 Date of admission: 07/18/21 13:54 Date of discharge: 07/26/21 Primary care physician: None Physician Admitting clinician: Rylie Castellanos Attending physician on admission: Cam Graham Attending physician on discharge: Cam Graham Discharging clinician: Suzanne Wells DS: Diagnosis Discharge Diagnosis (1) MDD (major depressive disorder), recurrent severe, without psychosis: Status: Acute (2) Post traumatic stress disorder (PTSD): Status: Acute DS: Medications Discharge Medications Home Medications: Previous Rx's Medication Instructions Recorded cholecalciferol (vitamin D3) 10 10 mcg PO DAILY #30 tab 07/26/21 mcg (400 unit) tablet (Vitamin D3) cyclobenzaprine 10 mg tablet 10 mg PO TID PRN #90 tab 07/26/21 divalproex 250 mg tablet,delayed 250 mg PO TID #90 tab 07/26/21 release folic acid 1 mg tablet 1 mg PO DAILY #30 tab 07/26/21 gabapentin 400 mg capsule 800 mg PO TID #90 cap 07/26/21 mirtazapine 15 mg tablet 15 mg PO BEDTIME #30 tab 07/26/21 multivitamin (Daily-Roberto) 1 tab PO DAILY #30 tab 07/26/21 olanzapine 15 mg tablet 15 mg PO BEDTIME #30 tab 07/26/21 olanzapine 5 mg tablet 5 mg PO BID PRN #60 tab 07/26/21 omeprazole 20 mg capsule,delayed 20 mg PO BID@0630,1630 #60 cap 07/26/21 release prazosin 1 mg capsule 5 mg PO BEDTIME #30 cap 07/26/21 prednisone 20 mg tablet 60 mg PO DAILY 5 Days #90 tab 07/26/21 Mental Status Exam Mental Status Exam Patient Appearance: Appropriate Patient Orientation: Person, Place, Time and Situation Level of Consciousness: Awake and Alert Patient Behavior: Talkative Mood Description: Calm Affect Description: Calm Patient Cognition Impaired: No Ability to Follow Directions: Good Speech Pattern: Spontaneous Speech Memory Description: Intact Hallucinations: None Delusions: Not Present Thought Process: Intact Thought Content: positive for Intact Judgement: Good Data Data Completed and Pending Completed studies during hospitalization [Text1]: 07/26/21 07/26/21 07:57 07:57 WBC 16.3 H RBC 4.85 Hgb 14.6 Hct 41.7 L MCV 86.0 MCH 30.1 MCHC 35.0 RDW 13.0 Plt Count 244 MPV 9.5 Immature Gran % (Auto) 2.0 H Neut % (Auto) 75.2 H Lymph % (Auto) 15.1 L Cole % (Auto) 6.8 Eos % (Auto) 0.7 Baso % (Auto) 0.2 Lymph # (Auto) 2.5 Cole # (Auto) 1.1 Eos # (Auto) 0.1 Baso # (Auto) 0.0 Abs Immat Gran (auto) 0.33 H Absolute Neuts (auto) 12.3 H Absolute Nucleated RBC 0.000 Nucleated RBC % (auto) 0.0 Sodium 136 Potassium 4.0 Chloride 99 Carbon Dioxide 26 Anion Gap 15 BUN 19 H D Creatinine 0.94 Estim Creat Clear Calc 110.0 Estimated GFR > 60 Random Glucose 119 H D Calcium 9.4 Total Bilirubin 0.9 AST 13 D ALT 29 Alkaline Phosphatase 57 Total Protein 6.7 Albumin 4.0 Valproic Acid 40.1 L DS: Summary Hospital Course Hospital Course: Admission to adult psychiatry to address exacerbation of symptoms of PTSD and recurrent major depression. Care plan, medication regime and out patient plan of care prior to admission were reviewed. Education was provided regarding managment of symptoms, medication and side effects. Nursing and social service worked extensively with patient on collateral contacts, plan of care, education regarding management of symptoms, medications and discharge planning. Olanzapine, Valproate, Mirtazapine and Prazosin were initiated during the admission for symptom management. Pt, upon discharge reported feeling like himself and found the regime to be useful. Time spent discussing smoking cessation with patient: 3 to 10 minutes Status at Discharge Cognitive/behavioral status at discharge: non-psychotic, non-suicidal Functional status at discharge: independent ambulation Overall status at discharge: patient is back to baseline Time Spent with Patient Time attestation: Total time spent providing and/or coordinating discharge services: 40 Time spent: Greater than 30 minutes Discharge Plan Discharge Patient Disposition: Home, Self-Care Discharge Diagnosis: PTSD Recurrent Major Depression,Severe Referrals: Trisha Vicente [Other] - 07/29/21 10:00 am (Initial Diagnostic evaluation with Therapist Tele-health appointment) Eusebio Adair [Other] - 08/23/21 9:00 am (Initial Psychiatric Evaluation with Psychiatrist Tele-health Appointment) V[facility]ctorjosesito [place] [Other] - 09/19/21 3:20 pm (Medication Management appointment with psychiatrist Tele-health Appointment.) [facility] [Other] - 07/29/21 12:00 pm (Referral for [facility] services.) Marilin Gordon, [employer] [Nurse Practitioner] - 10/16/21 9:40 am (in office) Discharge Medications: New divalproex 250 mg Tablet,Delayed Release (Dr/Ec) 250 mg PO TID Qty: 90 RF: 0 prazosin 1 mg Capsule 5 mg PO BEDTIME Qty: 30 RF: 0 gabapentin 400 mg Capsule 800 mg PO TID Qty: 90 RF: 0 olanzapine 5 mg Tablet 5 mg PO BID PRN (Reason: racing thoughts) Qty: 60 RF: 0 mirtazapine 15 mg Tablet 15 mg PO BEDTIME Qty: 30 RF: 0 multivitamin [Daily-Roberto] Tablet 1 tab PO DAILY Qty: 30 RF: 0 omeprazole 20 mg Capsule,Delayed Release(Dr/Ec) 20 mg PO BID@0630,1630 Qty: 60 RF: 0 folic acid 1 mg Tablet 1 mg PO DAILY Qty: 30 RF: 0 cholecalciferol (vitamin D3) [Vitamin D3] 10 mcg (400 unit) Tablet 10 mcg PO DAILY Qty: 30 RF: 0 olanzapine 15 mg tablet 15 mg PO BEDTIME Qty: 30 RF: 0 Continued cyclobenzaprine 10 mg tablet 10 mg PO TID PRN (Reason: muscle spasm) Qty: 90 RF: 0 prednisone 20 mg tablet 60 mg PO DAILY 5 Days Qty: 90 RF: 0 Discontinued ketorolac 10 mg tablet 10 mg PO Q6H PRN (Reason: pain) 5 Days Qty: 20 RF: 0 Discharge Orders: Discharge Order (Routine); Ordered 07/26/21 Ordered By: Suzanne Wells Diet: advance to usual diet Activity on Discharge: As tolerated Stand Alone Forms: Patient Portal Discharge page, Community Support Care Plan Goals: Mood Stabilization Health Concerns: PTSD Recurrent Major Depression Plan of Treatment: Attend scheduled appointments Take medications as directed Call/return as needed Crisis Services [phone] Assessment: non-psychotic, non-suicidal Discharge Date/Time: 07/26/21 13:34
== END 2021-07-26 13:34 | disposition home or self-care (01) | DRG 751 ==
LOC: HO.ED 20:47 → HO.PM5 07-18 14:40
PROVIDERS: Physician Assistant Medical; Admitting Provider Psychiatry & Neurology Psychiatry; Emergency Provider Internal Medicine; Visit Provider Clinical Nurse Specialist Psychiatric/Mental Health, Adult
DX: F33.2 Major depressive disorder, recurrent severe without psychotic features (principal); R45.851 Suicidal ideations; F43.10 Post-traumatic stress disorder, unspecified; F17.210 Nicotine dependence, cigarettes, uncomplicated; Z91.51 Personal history of suicidal behavior; Z20.822 Contact with and (suspected) exposure to COVID-19; Z71.6 Tobacco abuse counseling; Z79.899 Other long term (current) drug therapy
CPT/HCPCS: 36415; 80053; 80061; 80164; 80307; 81003; 82077; 82607; 82746; 83036; 83690; 83735; 84439; 84443; 85025; 87635; 93005; 99285

== ENCOUNTER 2021-09-02 20:21 | Emergency (ER) | payer OTHER, SELFPAY | END 2021-09-02 22:41 | disposition left against medical advice (07) | PROVIDERS: Emergency Provider Emergency Medicine | DX: K92.1 Melena (principal) ==

== ENCOUNTER 2022-02-11 19:28 | Emergency (ER) | payer OTHER, SELFPAY ==
--- NOTE | ~2022-02-11 | CT_ITS ---
EXAMINATION: CT ABDOMEN AND PELVIS WITHOUT CONTRAST CLINICAL INFORMATION: Hematuria with history of kidney stones COMPARISON: None TECHNIQUE: Multidetector volumetric imaging was performed from the superior aspect of the liver through the pubic symphysis. Sagittal and coronal reformatted images were obtained on the technologist's workstation. This CT examination was performed using dose optimization techniques as appropriate, variously including the following: *Automated exposure control *Adjustment of mA and/or kV according to patient size (this includes techniques or standardized protocols for targeted exams where dose is matched to indication/reason for exam; i.e. extremities or head) *Use of iterative reconstruction technique DLP: 595 mGy-cm FINDINGS: LUNG BASES: The visualized lung bases are unremarkable. LIVER, GALLBLADDER, AND BILIARY TREE: The liver is normal in size, shape, and attenuation. No focal hepatic lesion or biliary ductal dilatation is present. The gallbladder is unremarkable with no evidence of radiopaque gallstones, gallbladder wall thickening, or obvious pericholecystic inflammatory changes. PANCREAS: Unremarkable. SPLEEN: Unremarkable. ADRENAL GLANDS: Unremarkable. KIDNEYS AND URETERS: The kidneys are normal in size, shape, and attenuation. No hydronephrosis, hydroureter, or calculi seen. No perinephric stranding. BLADDER: Bladder is decompressed with a mildly symmetrically thickened wall. GASTROINTESTINAL TRACT: The small and large bowel are unremarkable. The appendix is unremarkable. ABDOMINAL WALL: A small periumbilical hernia seen with some mild diastases of the rectus muscles LYMPH NODES: No retroperitoneal lymphadenopathy. VASCULAR: Unremarkable. PELVIC VISCERA: Prostate and seminal vesicles appear normal. OSSEOUS STRUCTURES: Marked degenerative changes present at L5-S1 with the remainder of the spine appearing unremarkable. CT/CT abdomen pelvis wo con IMPRESSION: 1. Cause for the patient's hematuria is not found. 2. No renal calculi are present. 3. Incidental findings as described above. Fleischner guidelines were followed.
[2022-02-11 19:47] VITALS: BP 173/106; PULSE 75; RESP 16; TEMP 36.8; O2SAT 98; BMI 29.9
[2022-02-11 20:00] LABS: Appearance Urine CLEAR; Color Urine STRAW; Glucose Urine UA NEG (NEG); Leukocyte Esterase Urine NEG (NEG); Nitrite Urine NEG (NEG); PH 6.5 (5.0-8.0); Specific Gravity - Urine <= 1.005 (1.005-1.025); UACC Culture Trigger NO; Urine Blood 3+ (NEG); Urine Ketones NEG (NEG); Urine Protein NEG (NEG-TRACE)
[2022-02-11 20:08] LABS: Squamous Epithelial Cell Urine TRACE /LPF
[2022-02-11 20:09] LABS: WBC Urine 0-2 /HPF (0-4)
[2022-02-11 20:49] LABS: MANUAL DIFF FLAG NO
[2022-02-11] MEDS: Acetaminophen 325 MG TABLET 650 MG PO (20:49)
[2022-02-11 20:50] LABS: Basophils Absolute Auto 0.1 X10*3/uL (0.0-0.2); Basophils Percent Auto 0.8 % (0-2); Eosinophils Absolute Auto 0.2 X10*3/uL (0.0-0.4); Eosinophils Percent Auto 2.6 % (0-4); Hematocrit 41.5 % (42.0-52.0); Hemoglobin 14.7 g/dl (14.0-18.0); Imm Gran Abs Auto 0.03 X10*3/uL (0.00-0.03); Imm Gran Pct Auto 0.4 % (0.0-0.4); Lymphocytes Absolute Auto 1.9 X10*3/uL (1.2-4.9); Lymphocytes Percent Auto 26.8 % (20-40); Mean Corpuscular HGB Conc 35.4 g/dl (31.0-36.0); Mean Corpuscular Hemoglobin 29.8 pg (27.0-33.0); Monocytes Absolute Auto 0.5 X10*3/uL (0.1-1.2); Monocytes Percent Auto 6.2 % (2-11); Neutrophils Absolute Auto 4.6 x10*3/uL (2.0-8.3); Neutrophils Percent Auto 63.2 % (45-73); Platelet Count 253 X10*3/uL (160-400); Red Blood Count 4.94 X10*6/uL (4.60-5.80); Red Cell Distribution Width 13.1 % (11.0-16.0); White Blood Count 7.3 X10*3/uL (4.8-10.8)
[2022-02-11 21:09] LABS: Aspartate Amino Transferase 19 U/L (5-37); Bilirubin Total 1.3 mg/dL (0.0-1.0); Calcium 9.5 mg/dL (8.4-10.2); Chloride 108 mmol/L (96-108); Potassium 3.9 mmol/L (3.3-5.1); Sodium 141 mmol/L (135-145)
[2022-02-11 21:52] LABS: Alanine Aminotransferase 19 U/L (0-40); Albumin Level 4.5 g/dL (3.5-5.0); Alkaline Phosphatase 56 U/L (39-117); Blood Urea Nitrogen 12 mg/dL (9-16); Carbon Dioxide 22 mmol/L (22-29); Creatinine Clr Calc Pharmacy 95.9; Estimated Glomerular Filt Rate > 60; Glucose Random 112 mg/dL (60-115); Total Protein 7.3 g/dL (6.5-8.0)
[2022-02-11 21:54] LABS: Anion Gap 15 (12-20)
--- NOTE | 2022-02-11 22:01 | PC.NURSE ---
pt was c/o headache, requested tylenol.
--- NOTE | 2022-02-11 22:36 | PC.NURSE ---
pt left without treatment. pt was told he would have a bed in 15min and left
== END 2022-02-11 22:39 | disposition left against medical advice (07) ==
PROVIDERS: Emergency Provider Emergency Medicine
DX: R31.9 Hematuria, unspecified (principal); K45.8 Other specified abdominal hernia without obstruction or gangrene; I10 Essential (primary) hypertension; F17.200 Nicotine dependence, unspecified, uncomplicated; F12.90 Cannabis use, unspecified, uncomplicated
CPT/HCPCS: 36415; 74176; 80053; 81001; 81003; 85025; 99283; 99284